=== PATIENT | male | born 1950 | race Caucasian/White ===

== ENCOUNTER 2017-01-22 20:23 | Inpatient (IN) ==
[~2017-01-22 20:23] MED LIST: *HR* Amiodarone 150 MG/3 ML VIAL IVPB ONE; *HR* Amiodarone Premix 360 MG/200 ML BAG IVC ONE
[2017-01-22] MEDS ORDERED: Ondansetron 4 MG/2 ML VIAL ONE (20:49)
[2017-01-22] MEDS ORDERED: Amiodarone 150 MG in D5% in Water 100 ML IVPB ONE (20:51)
[2017-01-22] MEDS ORDERED: 0.9 % Sodium Chloride 1,000 ML IVC ONE (20:53)
[2017-01-22] MEDS ORDERED: 0.9 % Sodium Chloride 1,000 ML ONE (20:54)
[2017-01-22 20:59] LABS: Basophils # 0.1 K/mcL (0.0-0.2); Basophils % 0.4 %; Eosinophils # 0.3 K/mcL (0.0-0.6); Eosinophils % 2.3 %; Hematocrit 48.9 % (37.5-50.1); Hemoglobin 16.5 g/dL (12.9-16.9); Immature Granulocytes % 0.9 % (0-4); Lymphocytes # 2.5 K/mcL (0.6-4.6); Lymphocytes % 17.9 %; Mean Corpuscular HGB Conc 33.7 g/dL (31.6-35.5); Mean Corpuscular Hemoglobin 30.1 pg (28.0-33.3); Mean Corpuscular Volume 89.1 fL (83.0-100.0); Mean Platelet Volume 10.5 fL (9.4-12.4); Monocytes # 1.6 K/mcL (0.0-1.3); Monocytes % 11.8 %; Neutrophils # 9.2 K/mcL (1.6-8.9); Platelet Count 220 K/mcL (140-400); Red Blood Count 5.49 M/mcL (4.19-5.50); Red Cell Distribution Width 13.5 % (11.5-14.5); Segmented Neutrophils % 66.7 %
[2017-01-22] MEDS ORDERED: Amiodarone Premix 150 MG/100 ML BAG IVPB ONE (21:00)
[2017-01-22] MEDS ORDERED: Aspirin 81 MG TAB.CHEW ONE (21:01)
[2017-01-22 21:04] LABS: INR 1.1
[2017-01-22 21:07] LABS: Activated Partial Thrombo Time 27.8 Seconds (26.0-36.0)
[2017-01-22 21:16] LABS: Calcium 9.9 mg/dL (8.6-10.8); Chloride 98 mEq/L (98-109); Potassium 3.9 mEq/L (3.5-4.5); Sodium 138 mEq/L (136-145); eGFR For African Americans > 60 (> 60); eGFR For Non-African Americans 54 (> 60)
--- NOTE | 2017-01-22 21:23 | Emergency Department Note ---
Disposition Clinical Impression: Ventricular tachycardia, Elevated troponin, Elevated serum creatinine Disposition: Admitted As Inpatient Condition: Fair SOB HPI - General Chief Complaint: ED Shortness of Breath/Dyspnea Stated Complaint: sob,high heart rate,cp Time Seen by Provider: 01/22/17 20:32 Source: patient Mode of arrival: private vehicle Limitations: no limitations Nursing Notes Reviewed: Yes Vital Signs Reviewed: Yes - History of Present Illness 66-year-old male history of A. fib, hypertension, diabetes who presents to the ER due to chest pain or shortness of breath. Patient states he started feeling unwell yesterday evening but did not want come to the hospital until encouraged by his today. He reports substernal pain as well as shortness of breath without cough or productive sputum. No recent illnesses. He was hospitalized months ago and reports a history of V. tach requiring cardioversion. He does have an AICD which they report has not defibrillated. No recent changes in his medications. He is not anticoagulated due to concern for falls. No other complaints. Pt Subjective Complaint: shortness of breath Onset (ago): day(s) Severity: severe Consistency/Duration: constant Improves with: nothing Worsens with: nothing Known history of: congestive heart failure Associated symptoms: Reports: chest pain, diaphoresis. Denies: fever, cough, nausea/vomiting Treatment prior to arrival: none Cough present: No Sputum production: No Sputum Amount: None - Related Data Home oxygen amount: none Home Medications Medication Instructions Recorded Confirmed Aclidinium [place] [Tudorza 1 puff IH BID #0 12/26/14 01/22/17 Pressair] Albuterol Sulfate [Albuterol 2 puff IH Q4HR PRN #0 12/26/14 01/22/17 Inhaler] Furosemide [Lasix] 60 mg PO DAILY #0 12/26/14 01/22/17 Nitroglycerin [Nitrostat] 0.4 mg SL Q5M PRN 03/07/15 01/22/17 TraMADol [Ultram] 100 mg PO TID PRN 03/07/15 01/22/17 Aspirin 81 mg PO DAILY 11/05/16 01/22/17 Atorvastatin Calcium [Lipitor] 20 mg PO HS 11/05/16 01/22/17 Clopidogrel [Plavix] 75 mg PO DAILY 11/05/16 01/22/17 Ipratropium/Albuterol Neb [Duoneb] 3 ml IH Q6HR PRN 11/05/16 01/22/17 Metformin HCl [Metformin HCl ER] 500 mg PO 3XW 11/05/16 01/22/17 Silodosin [Rapaflo] 8 mg PO MOWEFR 11/05/16 01/22/17 Sotalol [Betapace] 80 mg PO BID 11/05/16 01/22/17 Spironolactone [Aldactone] 25 mg PO DAILY 11/05/16 01/22/17 Acetylcysteine 10% 2 ml IH Q8H PRN 01/22/17 01/22/17 Albuterol Neb [AccuNeb] 1.25 mg IH Q8H PRN 01/22/17 01/22/17 Omeprazole [PriLOSEC] 40 mg PO BID 01/22/17 01/22/17 Oxycodone HCl/Acetaminophen 1 each PO Q6H PRN 01/22/17 01/22/17 [Percocet 5-325 mg Tablet] Oxygen 3 l NS AD 01/22/17 01/22/17 Previous Rx's Medication Instructions Recorded Budesonide/Formoterol 160/4.5 2 puff IH BIDR #1 inhaler 12/29/14 [Symbicort] Allergies Allergy/AdvReac Type Severity Reaction Status Date / Time rofecoxib [From Vioxx] Allergy Difficulty Verified 11/05/16 08:10 Breathing All systems ED: reviewed and negative except as stated. Constitutional: Denies: fever Cardiovascular: Reports: chest pain. Denies: palpitations Respiratory: Reports: dyspnea. Denies: cough Gastrointestinal: Denies: abdominal pain, nausea, vomiting Past Medical History - Past Medical History Attestation: Yes The following information was validated with the patient. Source: patient Medical history: Reports: atrial fibrillation, COPD, diabetes, hyperlipidemia, myocardial infarction, other Surgical history: Reports: herniorrhaphy, orthopedic, other, pacemaker/AICD, vascular surgery, other, AICD, pacemaker Psychiatric history: Reports: anxiety - Social History Smoking Status: Former smoker Smokeless Tobacco Status: No Alcohol use: Reports: none Drug use: Reports: none Physical Exam - General Limitations: no limitations General appearance: alert, in no apparent distress - Head Head exam: atraumatic, normocephalic - Eye Eye exam: Present: normal appearance - ENT ENT exam: normal exam - Neck Neck exam: Present: normal inspection, full ROM - Chest Chest inspection: Present: normal inspection - Respiratory Respiratory exam: Present: normal lung sounds bilaterally - Cardiovascular Cardiovascular exam: Present: normal rhythm, tachycardia, normal heart sounds - Abdominal Exam Abdominal exam: Present: soft, Non-Tender. Absent: tenderness - Extremities Exam Extremities exam: Present: normal inspection, full ROM - Expanded Upper Extremity Exam Shoulder exam: Present: normal inspection, full ROM Arm exam: Present: normal inspection, full ROM Elbow exam: Present: normal inspection, full ROM Forearm/Wrist exam: Present: normal inspection, full ROM Hand exam: Present: normal inspection, full ROM Vascular exam: Normal: radial pulse - Expanded Lower Extremity Exam Hip/Pelvis exam: Present: normal inspection, full ROM Upper leg exam: Present: normal inspection, full ROM Knee exam: Present: normal inspection, full ROM Lower leg exam: Present: normal inspection, full ROM Ankle exam: Present: normal inspection, full ROM Foot/toe exam: Present: normal inspection, full ROM Neurovascular/Tendon exam: Absent: motor deficit, sensory deficit - Neurological Exam Neurological exam: Present: alert - Psychiatric Psychiatric exam: Present: normal affect - Skin Skin exam: Present: warm, dry, intact Course Course Narrative: Patient seen and examined. He is tachycardic with what appears to be a wide complex on his EKG concerning for V. tach. His blood pressure is currently stable at 110 systolic. We will obtain a chest x-ray as well as labs. We also did initiate amiodarone and we will talk with the labor contractor for EKG interpretation. - Reevaluation(s) Reevaluation #1: Amiodarone drip started. His rate has slightly decreased to roughly 155. I discussed with the on-call labor contractor who believes that it is V. tach and agrees with amiodarone as well as heparinizing the patient. Reevaluation #2: Patient noted to be slightly more hypotensive here around 95 systolic. We did obtain a manual blood pressure which showed the same reading. 1 L of fluid ordered. Mentating appropriate at this time. Reevaluation #3: Interventionalists paged Time: 21:21 Additional Reevaluation(s): After recommendations by interventional cardiology for cardioversion the patient was given 10 mg of etomidate and cardioverted with 200 J synchronized. Repeat EKG demonstrates sinus rhythm. Patient tolerated procedure well. - Consultations Consultation #1: I spoke with the on-call labor contractor Dr. Howell. I discussed the patient's history EKG is interventions and hemodynamics to date. Requested to send EKGs for his interpretation. We will send and await evaluation. Consultation #2: I spoke again with Dr. Howell. He believes that this does appear to be ventricular tachycardia and agrees with amiodarone as well as starting a heparin drip and discussing with interventional cardiology. Time: 21:20 Consultation #3: I spoke with the on-call interventional with Dr. Ventura. I sent the EKGs for interpretation. He recommends to cardiovert the patient and to continue amiodarone. Vital Signs Temperature 97.4 F L 01/22/17 20:25 Pulse Rate 163 01/22/17 20:25 Respiratory Rate 22 01/22/17 20:25 Blood Pressure 106/78 01/22/17 20:25 O2 Sat by Pulse Oximetry 98 01/22/17 20:25 Temperature 97.8 F 01/24/17 10:57 Pulse Rate 72 01/24/17 12:30 Respiratory Rate 16 01/24/17 10:57 Blood Pressure 116/66 01/24/17 10:57 O2 Sat by Pulse Oximetry 94 01/24/17 10:57 Oxygen Delivery Oxygen Delivery Nasal Cannula Procedures - Procedural Sedation Indication: other (Cardioversion) If known; time of last PO intake: 18:00 H&P (including ROS) documented in medical record: Yes Previous reaction to sedatives/anesthetics: No Dentition: poor dentition (Upper denture), dentures removed Airway Assessment: Patient can open mouth completely, TMJ function normal Possible difficult airway: Yes Difficult Airway; If yes,: Enlarged neck circumference, short neck ASA Classification: CLASS II-Mild systemic disease Plan of Care: Pt appropriate candidate for procedure/moderate/conscious sedation , Risks/benefits of procedure/sedation discussed w/ patient/family, If not NPO; Risk of intake outweiged by necessity to perform procedure Preparation: environmental monitoring specialist applied, pulse oximeter, supplemental O2 applied, suction/airway equipment at bedside, IV secured IV Etomidate Dose (mgs): 10 Patient Tolerated Procedure: well Complications: none Shortness of Breath/Dyspnea - MDM Narrative Medical decision making narrative: -year-old male presents to the ER due to chest pain and shortness of breath. Found to be in ventricular tachycardia here. EKGs were reviewed with cardiology as well as interventional cardiology. The patient was placed on amiodarone as well as an amiodarone infusion. After discussion with interventional cardiology they recommended to cardiovert the patient. We will utilize procedural sedation with etomidate and synchronized cardioversion with 200 J with conversion to sinus rhythm. Patient currently on amiodarone as well as heparin at the recommendation of cardiology. Labs reviewed showing an elevated troponin of 0.04. He will be admitted to the hospitalist service with cardiology consultation. - Medical Records Medical records reviewed: Yes I reviewed the patient's medical records. - Lab Data Lab results reviewed: Yes I reviewed the patient's lab results. Result diagrams: 01/24/17 04:40 01/24/17 04:40 Lab Results 01/22/17 01/22/17 01/22/17 Range/Units 20:45 20:45 20:45 WBC 13.8 H (4.3-11.1) K/mcL RBC 5.49 (4.19-5.50) M/mcL Hgb 16.5 (12.9-16.9) g/dL Hct 48.9 (37.5-50.1) % MCV 89.1 (83.0-100.0) fL MCH 30.1 (28.0-33.3) pg MCHC 33.7 (31.6-35.5) g/dL RDW 13.5 (11.5-14.5) % Plt Count 220 (140-400) K/mcL MPV 10.5 (9.4-12.4) fL Immature Gran % 0.9 (0-4) % Seg Neutrophils % 66.7 % Lymphocytes % 17.9 % Monocytes % 11.8 % Eosinophils % 2.3 % Basophils % 0.4 % Neutrophils # 9.2 H (1.6-8.9) K/mcL Lymphocytes # 2.5 (0.6-4.6) K/mcL Monocytes # 1.6 H (0.0-1.3) K/mcL Eosinophils # 0.3 (0.0-0.6) K/mcL Basophils # 0.1 (0.0-0.2) K/mcL PT 12.0 (9.4-12.1) Seconds INR 1.1 APTT 27.8 (26.0-36.0) Seconds Sodium 138 (136-145) mEq/L Potassium 3.9 (3.5-4.5) mEq/L Chloride 98 (98-109) mEq/L Carbon Dioxide 26 (19-29) mEq/L BUN 28 H (8-26) mg/dL Creatinine 1.32 H (0.72-1.25) mg/dL Est GFR ( Amer) > 60 (> 60) Est GFR (Non-Af Amer) 54 L (> 60) BUN/Creatinine Ratio 21 (6-26) Glucose 174 H (70-99) mg/dL Calculated Osmolality 296 (280-300) Calcium 9.9 (8.6-10.8) mg/dL Magnesium 2.1 (1.6-2.6) mg/dL Troponin I (0-0.03) ng/mL B-Natriuretic Peptide (0-100) pg/mL TSH 1.939 (0.350-4.840) mcIU/mL 01/22/17 01/22/17 Range/Units 20:45 20:45 WBC (4.3-11.1) K/mcL RBC (4.19-5.50) M/mcL Hgb (12.9-16.9) g/dL Hct (37.5-50.1) % MCV (83.0-100.0) fL MCH (28.0-33.3) pg MCHC (31.6-35.5) g/dL RDW (11.5-14.5) % Plt Count (140-400) K/mcL MPV (9.4-12.4) fL Immature Gran % (0-4) % Seg Neutrophils % % Lymphocytes % % Monocytes % % Eosinophils % % Basophils % % Neutrophils # (1.6-8.9) K/mcL Lymphocytes # (0.6-4.6) K/mcL Monocytes # (0.0-1.3) K/mcL Eosinophils # (0.0-0.6) K/mcL Basophils # (0.0-0.2) K/mcL PT (9.4-12.1) Seconds INR APTT (26.0-36.0) Seconds Sodium (136-145) mEq/L Potassium (3.5-4.5) mEq/L Chloride (98-109) mEq/L Carbon Dioxide (19-29) mEq/L BUN (8-26) mg/dL Creatinine (0.72-1.25) mg/dL Est GFR ( Amer) (> 60) Est GFR (Non-Af Amer) (> 60) BUN/Creatinine Ratio (6-26) Glucose (70-99) mg/dL Calculated Osmolality (280-300) Calcium (8.6-10.8) mg/dL Magnesium (1.6-2.6) mg/dL Troponin I 0.04 H* (0-0.03) ng/mL B-Natriuretic Peptide 1417 H (0-100) pg/mL TSH (0.350-4.840) mcIU/mL - Radiology Data Radiology results reviewed: Yes I reviewed the patient's radiology results. Chest X-Ray 01/22/17 20:51 IMPRESSION: 1. No definite acute infiltrate. 2. Spiculated opacity within the right lung apex, decreased in size when compared to the previous exam, with associated pleural thickening, presumably representing neoplasm and scarring. D/ / Ulises Aguilar MD / Ulises Aguilar MD Interpreting Provider: Ulises Aguilar MD - EKG Data EKG attestation: Yes I reviewed and interpreted this EKG. EKG results narrative: EKG demonstrates ventricular tachycardia with a rate of 164. Right axis deviation. Prolonged QRS duration of 182. QTC [address] elevations. Changes from prior EKG included V. tach. Repeat EKG after cardioversion demonstrates sinus rhythm with rate of 73 bpm. Normal axis. Prolonged WI interval of 202. Otherwise normal intervals. Q waves in the inferior leads. No gross ST elevations or depressions. No acute ischemic findings. S.B.A.R. - S.B.A.R. Situation: Demographics, MOA Background: Presenting Complaint, Relevant PMH, Meds, & Allergies Assessment: Vital Signs, Course and respsone to treatment, Exam Concerns, Patient/Family Expectation, Pertinant Lab Results Recommendation: Barrier(s) to disposition, Recommendation based on pending studies, treatments, or consults S.Lexi Report Given to: Dr. Aylin Coleman Repor Time: 22:20 (Request 20 mEq of oral potassium as well as to check a magnesium level.) Attestation Statement - Attestation Attestation: I examined this patient and my medical decision-making was reviewed with the Resident Physician, Dr. Metcalf. I agree with the documented findings, disposition and treatment plan as described except to the extent set forth below. Pt is a 66 yo wm, with hx CAd, a fib, DM, HTN who presents to the ER with c/o substernal nonrad CP/press, and SOB. Sxs began almost 30 hours ago, but pt didn' t want to come to the ER. reports pt hospitalized recently for v tach which required cardioversion. Pt not on anticoagulants due to concersn with being a fall risk. Pt has been compliant with his meds. I agree with PE findings as documented. EKG shows v tach, HR 160's with stable BP on arrival. Pt on CM/pulse ox, PIV x 2 established, and pt given ASA and IV amiodarone for rate control with wide complex tachycardia. Labs drawna dn sent. CXR obtained, no acute abn. Contacted Dr. Howell, who agrees with current mgmt, and recommends heparin IV and if BP becomes unstable, cardiovert. Also recommended speaking with interventionalist. Also d/w interventionalist on-call. Pt became hypotensive and now diaphoretic, SOB and CP. IVF initiated and set up for cardioversion. Explained indications for electrical cardioversion and pt and consent to procedure. Resp/pharmacy called to bedside. Pt sedated with etomidate and synchronized CV at 200 J, with return to NSR, narrow QRS with stable BP. Pt tolerated quite well, and VSS, sxs improved. Labs with elev trop. EKG repeated. D/W hospitalist who accepted pt for admission , Cardio consulted from ED. Pt improved.
[2017-01-22] MEDS ORDERED: *HR* Etomidate 20 MG/10 ML AMPUL IVP ONE (21:33)
[2017-01-22 21:37] LABS: Thyroid Stimulating Hormone 1.939 mcIU/mL (0.350-4.840)
[2017-01-22] MEDS ORDERED: *HR* Heparin 5,000 UNIT/ML VIAL IVP PRN ×2 (21:44)
[2017-01-22] MEDS ORDERED: *HR* Heparin 5,000 UNIT/ML VIAL IVP ONE (21:44)
[2017-01-22] MEDS ORDERED: Amiodarone Premix 360 MG/200 ML BAG IVC ONE (21:45)
[2017-01-22] MEDS: Heparin 25,000 UNIT/500 ML D5W 25,000 UNIT/500 ML MLS IVC SCH (21:58)
[2017-01-22 22:32] LABS: BUN/Creatinine Ratio 21 (6-26); Blood Urea Nitrogen 28 mg/dL (8-26); Carbon Dioxide 26 mEq/L (19-29); Glucose 174 mg/dL (70-99); Osmolality,Calculated 296 (280-300)
[2017-01-22 23:00] LABS: Magnesium 2.1 mg/dL (1.6-2.6)
--- NOTE | 2017-01-22 23:40 | Internal Med History&Physical ---
Date of Encounter: 01/22/17 Time of Encounter: 23:40 Assessment and Plan (1) Ventricular tachycardia Current visit: Yes Status: Acute Unclear etiology, possibly secondary to CHF likely acute systolic Continue amiodarone drip, heparin drip Radiology consult Start Lasix IV, strict I's and O's and daily weight Telemetry Continue sotalol for now Consider starting on antibiotics even infectious focus is suspected as a trigger of his tachycardia, check UA Omeprazole for GI prophylaxis and heparin drip for DVT prophylaxis. The patient will be admitted as inpatient, expected to stay more than 2 midnights. Full code. Time spent on this admission 40 minutes High risk due to V. tach (2) Elevated serum creatinine Current visit: Yes Status: Acute Acute renal failure possibly related to CHF Continue Lasix for now (3) Elevated troponin Current visit: Yes Status: Acute Possibly related to V. tach versus acute coronary syndrome May monitor troponins (4) MANUEL on CPAP Current visit: No Status: Acute (5) History of COPD Current visit: No Status: Chronic No exacerbation (6) History of coronary artery disease Current visit: No Status: Chronic Continue aspirin, Plavix (7) BPH (benign prostatic hypertrophy) with urinary obstruction Current visit: No Status: Resolved (8) Diabetes mellitus Current visit: No Status: Acute Insulin sliding scale Hold metformin due to renal failure Qualifiers: Diabetes mellitus type: type 2 Diabetes mellitus complication status: without complication Diabetes mellitus long term care social worker insulin use: without care home use Qualified Code(s): E11.9 - Type 2 diabetes mellitus without complications Internal Medicine - H&P: HPI Chief complaint: Shortness of breath Admitted From: Emergency Dept History of present illness: Mr. Apodaca is a 66 year old male with a past medical history of CHF possibly systolic status post AICD placement, A. fib not on anticoagulation currently on sotalol, diabetes type 2 not insulin-dependent, came to emergency room complaining of 2 weeks of shortness of breath worsened the past 24 hours, he has a dry cough, denies any fevers or sick contacts. Says that he has been using his metolazone and Lasix but his heart rate has been extremely elevated up to the 160s even for 24 hours. BNP is 1417 white blood cell count is 13.8, creatinine has increased from 0.99 up to 1.3, chest x-ray shows a spiculated opacity in the right upper lung has decreased in size, troponin 0.04, the patient developed V. tach for which cardiology was consulted by the ER and recommended to cardiovert with 200 J and to start an amiodarone drip. Patient is more stable at the moment does not complain of any other symptom. Past Med Surg Social Fam HX - Past Medical History Medical history: atrial fibrillation (Not on anticoagulation currently on sotalol), COPD (Oxygen dependent using 2 L at home), diabetes (Not insulin- dependent), hyperlipidemia, myocardial infarction, other (BPH, chronically elevated troponins, CAD, cardioversion in the past,) Psychiatric history: anxiety - Past Surgical History Surgical History: herniorrhaphy, orthopedic, other (Shoulder arthroscopy), pacemaker/AICD, vascular surgery, other (Cardiac ablation), AICD, pacemaker - Social History Smoking Status: Former smoker Packs per day: Quit 5 years ago Smokeless Tobacco Status: No Alcohol use: none Drug use: none - Family History Father Living Status: Mother Living Status: Brother Living Status: Still Living Hx Family Cardiac Disorders: Yes (Hypertension) Hx Family Endocrine Disorder: Yes (Diabetes) Sister Living Status: Still Living Hx Family Endocrine Disorder: Yes (Diabetes) - Additional Family History Additional family history: Brother with lung cancer and mother with dementia Internal Medicine - H&P: Meds Aclidinium [place] [Tudorza [place]air] 1 puff IH BID #0 12/26/14 [History] Albuterol Sulfate [Albuterol Inhaler] 2 puff IH Q4HR PRN #0 12/26/14 [History] Furosemide [Lasix] 60 mg PO DAILY #0 12/26/14 [History] Budesonide/Formoterol 160/4.5 [Symbicort] 2 puff IH BIDR #1 inhaler 12/29/14 [Rx ] Nitroglycerin [Nitrostat] 0.4 mg SL Q5M PRN 03/07/15 [History] TraMADol [Ultram] 100 mg PO TID PRN 03/07/15 [History] Aspirin 81 mg PO DAILY 11/05/16 [History] Atorvastatin Calcium [Lipitor] 20 mg PO HS 11/05/16 [History] Clopidogrel [Plavix] 75 mg PO DAILY 11/05/16 [History] Ipratropium/Albuterol Neb [Duoneb] 3 ml IH Q6HR PRN 11/05/16 [History] Metformin HCl [Metformin HCl ER] 500 mg PO 3XW 11/05/16 [History] Silodosin [Rapaflo] 8 mg PO MOWEFR 11/05/16 [History] Sotalol [Betapace] 80 mg PO BID 11/05/16 [History] Spironolactone [Aldactone] 25 mg PO DAILY 11/05/16 [History] Acetylcysteine 10% 2 ml IH Q8H PRN 01/22/17 [History] Albuterol Neb [AccuNeb] 1.25 mg IH Q8H PRN 01/22/17 [History] Omeprazole [PriLOSEC] 40 mg PO BID 01/22/17 [History] Oxycodone HCl/Acetaminophen [Percocet 5-325 mg Tablet] 1 each PO Q6H PRN [History] Oxygen 3 l NS AD 01/22/17 [History] 3 Allergy/AdvReac Type Severity Reaction Status Date / Time rofecoxib [From Vioxx] Allergy Difficulty Verified 11/05/16 08:10 Breathing All Systems PM: A 10-system review of systems was performed and is negative for pertinent findings except as documented above in the HPI. Review of systems: Feels short of breath, has not been able to lay flat due to shortness of breath , denies any headaches, other systems out of the 10 reviewed were negative. - Constitutional Vitals: Temp Pulse Resp BP Pulse Ox 97.4 F L 85 18 109/75 100 01/22/17 20:25 01/22/17 23:27 01/22/17 23:27 01/22/17 23:27 01/22/17 23:27 General appearance: Present: A&O X 3, morbidly obese - Head Head exam: Present: atraumatic, normocephalic - Eye Eye exam: Present: PERRL, conjuntiva pink, sclera anicteric Pupils: Present: PERRL - Neck Neck exam general surgery: Present: supple, trachea midline. Absent: lymphadenopathy - Respiratory Respiratory exam: Present: decreased breath sounds, CTAB. Absent: accessory muscle use, rales, rhonchi, wheezes - Cardiovascular Cardiovascular exam: Present: RRR, +S1, +S2, tachycardia. Absent: diastolic murmur, gallop, rubs, systolic murmur - GI/Abdominal GI/Abdominal exam: Present: normal bowel sounds, soft, no peritoneal signs. Absent: distended, tenderness - Extremities Exam Extremities exam: Present: pedal edema (+2 pitting edema in both lower extremities), warm, radial pulses palpable and symmetrical. Absent: calf tenderness, cyanotic - Neurological Exam Neurological exam: Present: CN II-XII intact, oriented X3, no focal deficits. Absent: pronater drift, facial droop, speech deficit - Skin Skin exam: Present: dry, intact Internal Med - H&P Results - Labs CBC & Chem 7: 01/22/17 20:45 01/22/17 20:45
[2017-01-22] MEDS ORDERED: Ipratropium/Albuterol Neb 3 ML IH PRN (23:59)
[2017-01-22] MEDS ORDERED: Nitroglycerin 0.4 MG TAB.SUBL SL PRN (23:59)
[2017-01-23] MEDS ORDERED: Naloxone 0.4 MG/ML INJ IVP PRN (00:02)
[2017-01-23] MEDS ORDERED: Acetaminophen 325 MG TABLET PO PRN (00:02)
[2017-01-23] MEDS ORDERED: *HR* Morphine 2 MG/ML SYRINGE IVP PRN (00:02)
[2017-01-23] MEDS ORDERED: Dextrose Gel 15 GM PO PRN ×2 (00:16)
[2017-01-23] MEDS ORDERED: *HR* Dextrose 50 % in Water (Syg) 50 ML SYRINGE IVP PRN (00:16)
[2017-01-23] MEDS ORDERED: D5% in Water 1,000 ML IVC PRN (00:16)
[2017-01-23] MEDS: Furosemide 40 MG/4 ML VIAL IVP SCH ×3 (00:28→16:59)
[2017-01-23] MEDS: *HR* OxyCODONE/APAP 5/325 TABLET PO PRN ×2 (00:37→08:55)
[2017-01-23] MEDS: Insulin LISPRO 300 UNITS/3 ML VIAL SQ SCH ×5 (00:42→20:46)
[2017-01-23] MEDS: traMADol 50 MG TABLET PO PRN ×2 (02:47→10:39)
[2017-01-23] MEDS: Amiodarone Premix 360 MG/200 ML BAG IVC SCH ×2 (03:45→15:45)
[2017-01-23 04:45] LABS: BUN/Creatinine Ratio 21 (6-26); Blood Urea Nitrogen 26 mg/dL (8-26); Calcium 8.5 mg/dL (8.6-10.8); Carbon Dioxide 26 mEq/L (19-29); Chloride 100 mEq/L (98-109); Glucose 181 mg/dL (70-99); Magnesium 1.7 mg/dL (1.6-2.6); Osmolality,Calculated 295 (280-300); Potassium 3.5 mEq/L (3.5-4.5); Sodium 138 mEq/L (136-145); eGFR For African Americans > 60 (> 60); eGFR For Non-African Americans 59 (> 60)
[2017-01-23] MEDS ORDERED: 0.9 % Sodium Chloride 500 ML ONE (06:04)
[2017-01-23] MEDS: Budesonide/Formoterol 160/4.5 MDI IH SCH ×2 (08:11→20:21)
[2017-01-23] MEDS: Spironolactone 25 MG TABLET PO SCH (08:37)
[2017-01-23] MEDS: Aspirin 81 MG TAB.CHEW PO SCH (08:37)
--- NOTE | 2017-01-23 09:23 | Internal Med Progress Note ---
<Regino Velasco - Last Filed: 01/23/17 12:55> Date of Encounter: 01/23/17 Time of Encounter: 09:23 - Assessment and plan (1) Ventricular tachycardia Current Visit: No Status: Acute Assessment and plan: Started on amiodarone/heparin in ER; interventionalist cardioversion yesterday Continued on amiodarone Pt endorses AICD did not respond to sustained ventricular tachycardia Cardiology consulted (2) History of coronary artery disease Current Visit: No Status: Chronic Assessment and plan: [place]: 1998; AICD with Dr. Hood in [facility] Continue aspirin, plavix, lipitor; systolic dysfunction HF with bnp elevation, unknown onset (3) Elevated troponin Current Visit: No Status: Acute Assessment and plan: 0.04; elevate likely 2/2 heart failure, unlikely ACS (4) Diabetes mellitus Current Visit: No Status: Acute Assessment and plan: Pt on SSI; diabetic diet (currently npo for cath) will monitor Qualifiers: Diabetes mellitus type: type 2 Diabetes mellitus complication status: without complication Diabetes mellitus long winder tender insulin use: without long winder tender use Qualified Code(s): E11.9 - Type 2 diabetes mellitus without complications (5) MANUEL on CPAP Current Visit: No Status: Acute Assessment and plan: Tolerating CPAP Monitoring (6) History of COPD Current Visit: No Status: Chronic Assessment and plan: 40 year hx 2 ppd; quit 5 years ago On 2-3L home O2 (7) Obesity (BMI 30-39.9) Current Visit: No Status: Acute - Subjective Interval history: Mr. Apodaca, 66m, past medical history of a-fib, htn, dm2, [place]-1998 with aicd placement, presented to ER yesterday with tachycardia and shortness of breath, EKG showed wide qrs v-tac, admitted for ventricular tachycardia, placed on amiodarone/heparin drip, was dc cardioversion yesterday, is now in sinus rhythm , continuing amiodarone drip. Pt reports no defibrillation of aicd since onset of symptoms. Sees EP cardiology for aicd interrogation every [address] Hood in [place] near [place]. ROS: endorses rhinorrhea, difficulty ambulating (consistent with baseline, fall- risk) denies chest pain, shortness of breath currently, is comfortable, no fever. Social: 5 years quit; 40 year history on 2 packs; on 2L-3L O2 at home. - Constitutional Vitals: Temp Pulse Resp BP Pulse Ox 97.5 F L 60 16 108/77 96 01/23/17 07:59 01/23/17 08:08 01/23/17 08:11 01/23/17 07:59 01/23/17 08:11 General appearance: Present: A&O X 3, morbidly obese - Head Head exam: Present: atraumatic - Neck Neck exam general surgery: Present: full ROM - Respiratory Respiratory exam: Present: CTAB. Absent: respiratory distress, rhonchi Additional comments: on 2L nasal canula - Cardiovascular Cardiovascular exam: Present: +S1, +S2. Absent: systolic murmur Additional comments: currently sinus rhythm - GI/Abdominal GI/Abdominal exam: Present: no peritoneal signs. Absent: tenderness - Extremities Exam Extremities exam: Present: normal capillary refill, pedal edema Additional comments: +1 pitting edema Internal Medicine: Result - Labs CBC & Chem 7: 01/22/17 20:45 01/23/17 04:02 Labs: BMP 01/23/17 04:02 Sodium 138 Potassium 3.5 Chloride 100 Carbon Dioxide 26 BUN 26 Creatinine 1.22 Glucose 181 H Calcium 8.5 L - ABG Interpretation ABG results: PT/INR, D-dimer PT 12.0 Seconds (9.4-12.1) 01/22/17 20:45 Consult Discharge Plan - Plan Referrals: Dylon Kang MD [Partnered Physician] - 01/30/17 3:00 pm () Vern Pace, ELECTRICIAN SUPERVISOR [Advanced Practice Nurse] - (THE OFFICE WILL CALL PATIENT AT HOME WITH FOLLOW UP APPOINTMENT) <Flex Porter - Last Filed: 01/23/17 17:00> Date of Encounter: 01/23/17 - Constitutional Vitals: Temp Pulse Resp BP Pulse Ox 97.6 F 67 16 104/78 97 01/23/17 16:46 01/23/17 16:00 01/23/17 16:45 01/23/17 16:45 01/23/17 16:45 Internal Medicine: Result - Labs CBC & Chem 7: 01/22/17 20:45 01/23/17 04:02 Labs: BMP 01/23/17 04:02 Sodium 138 Potassium 3.5 Chloride 100 Carbon Dioxide 26 BUN 26 Creatinine 1.22 Glucose 181 H Calcium 8.5 L Cardiac Enzymes 01/23/17 01/23/17 Range/Units 10:07 15:59 Troponin I 0.03 0.02 (0-0.03) ng/mL - ABG Interpretation ABG results: PT/INR, D-dimer PT 12.0 Seconds (9.4-12.1) 01/22/17 20:45 - Impressions Impressions Echocardiogram 01/23/17 00:04 Impressions: Technically challenging study with suboptimal windows even with use of Definity. overall, LV systolic function appears normal estimated EF 55-60%. Unable to evaluate LV segmental wall motion. RV size and function appear normal. No significant valvular dysfunction. No pulmonary hypertension. Left Ventricular Wall Motion: Rest Echo Findings The apical inferior, mid inferior, basal inferior, mid anterior septal, mid inferior lateral, basal anterior septal and basal inferior lateral loco were not visualized. All other wall segments showed normal motion. Findings: Study Quality * Technically challenging due to body habitus. ECG Findings * Normal sinus rhythm. Right Ventricle * Normal RV size with probably normal function. Left Atrium * Normal left atrial size. Right Atrium * Normal right atrial size. Aortic Valve * No aortic regurgitation. * Aortic valve not well visualized. * No aortic stenosis. Mitral Valve * No mitral regurgitation. * Mitral valve not well visualized. * No mitral stenosis. Tricuspid Valve * Tricuspid valve not well visualized. * Trace tricuspid regurgitation. * Estimated RA pressure is 3 mmHg. * Estimated RVSP is 30 mmHg. * No pulmonary hypertension. Pulmonic Valve * Pulmonic valve is not well visualized. * No pulmonic stenosis. * No pulmonic regurgitation. Pulmonary Artery * Pulmonary artery not well visualized. Aorta * Not well visualized. Pericardium * There is no pericardial effusion present. Left Ventricle * Normal LV size and wall thickness. * Moderate left ventricular diastolic dysfunction. * Definity echo contrast was used. Images were suboptimal. * LVEF 55-60%. Device lead * A device lead was visualized in the right atrium and right ventricle. Interatrial Septum * No evidence of PFO by color Doppler. IVC * Normal IVC dimensions and inspiratory collapse. - Attending Attestation I examined this patient and my medical decision-making was reviewed with the Resident Physician. I agree with the documented findings, disposition and treatment plan as described except to the extent set forth below. This is a 66 y/o M with known CAD s/p stents, HTN, HLD, Morbid obese pt, systolic CHF, Ischemic cardiomyopathy with s/p AICD was presented to ER with plpiataiuonts. He happened to be in Vtach, so he had cardioversion done in ER x 1 and started him on Amiodarone and heparin gtt. Now pt is alert, awake and O x3. Denied any CP / SOB. No palpitations Chest: Diminished BS b/l no crackles, no rales Heart : S1 S2 + RRR No murmurs a/p 1. Acute V tach mostly triggered by CHF exacerbation scheduled for cardiac cath today mean while cont Amiodarone gtt 2. Acute CHF exacerbation.. seems to be systolic, however pt stated his recent echo showed LVEF 50% will f/u on 2 D Echo cont Lasix IV cont ASA, Plavix, Statin, Aldactone 3. Paroxymal Afib rate controlled on Sotalol cont heparin gtt for anticoag will check with cardiology about anti coag options
[2017-01-23] MEDS ORDERED: Perflutren Lipid Microsphere 1.3 ML in 0.9 % Sodium Chloride 8.7 ML IVP ONE (09:55)
[2017-01-23] MEDS: Cetirizine HCl 5 MG/5 ML UDC PO SCH (10:33)
--- NOTE | 2017-01-23 10:35 | Cardiology Consult Note ---
Date of Encounter: 01/23/17 Time of Encounter: 10:10 Assessment and Plan (1) Ventricular tachycardia Current Visit: No Status: Acute CP and SOB founds to be in Vtach. Patient started on an amiodarone drip and cardoverted back to normal sinus rhythm. Plan: - LHC today showed total occlusion of RCA with collateral circulation - Medtronic device interrogation - Echo showed EF 55-60%, LV systolic function normal, unable to evaluate LV segmental wall motion, RV size and function normal, valvular function normal - obtain records from Dr. Betts at [facility] - continue sotolol 80mg BID and amiodarone drip - begin Amiodarone 400mg BID oral after amiodarone 24hr protocol - continue plavix, asa, atorvastatin, lasix (2) Chronic a-fib Current Visit: Yes Status: Acute Hx of PAF, s/p ablation in 1998 and was on Eliquis. [id number] score of 3 for CAD, age, and PVD but due to cobos's esophagus his supervisor plate forming have recommended no anticoagulation therapy. Per cardiology note from Elif Pino CNP at [facility] 07/15/16. (3) CAD (coronary artery disease) Current Visit: Yes Status: Acute LHC today. Total RCA occluded with collaterals. Continue medical management. Qualifiers: Coronary Disease-Associated Artery/Lesion type: [place] artery [place] vs. transplanted heart: [place] heart Associated angina: with unspecified angina Qualified Code(s): I25.119 - Atherosclerotic heart disease of [place] coronary artery with unspecified angina pectoris (4) ICD (implantable cardioverter-defibrillator), dual, in situ Current Visit: Yes Status: Acute Device interrogation showed: "lead trends within expected range. Sensing threshold measurements and lead impedances within expected range, no atrial/rv auto capture threshold measurements available. The device recorded 8 monitored VT episodes, longest lasted 22 hrs, last recored on Jan 21 2017, suspected retrograde conduction, A rate/vrates 150s-160s bpm, VT detection programed rate - 176 bpm, 1 Vt- Ns episode on 12 jan 2017." Discussion w patient/family: The assessment and plan as outlined above was discussed with the patient and/or family members who expressed understanding and agreement. All questions were answered. Thank you for involving us in the care of your patient. Please call with any questions. History of Present Illness Consult date: 01/22/17 Requesting physician: Gera Metcalf Consult reason: Vtach Chief complaint: CP, SOB, and dizzness History of present illness: Mr. Apodaca is a 66 year old male with a pmh of afib on plavix and asa, HTN, DM2, dual chamber Medtronic ICD with unknown last interrogation , [place] in 1998 without stent placement, fem-fem bipass, and recent hospitalization 1 mo ago for Vtach requiring cardioversion presented to the ED with CP, SOB, and dizzness and found to be in Vtach. Patient states that his chest pain began Friday evening ( 01/21). Denies chest pain with exertion, N/V. Former smoker. His repair manager is Dr. Betts at [facility] but he would like to transfer to [place]. Last heart cath in 2012 with total occlusion of the right coronary artery and no critical disease in the left coronary artery. In the ED patient was placed on an Amiodarone and Heparin drip and was cardioverted with 200J. Patient is currently rate controlled and is feeling better other than some dizziness. Past Med Surg Social Fam HX - Past Medical History Medical history: atrial fibrillation (Not on anticoagulation currently on sotalol), COPD (Oxygen dependent using 2 L at home), diabetes (Not insulin- dependent), hyperlipidemia, myocardial infarction, other (BPH, chronically elevated troponins, CAD, cardioversion in the past,) Psychiatric history: anxiety - Past Surgical History Surgical History: herniorrhaphy, orthopedic, other (Shoulder arthroscopy), pacemaker/AICD, vascular surgery, other (Cardiac ablation), AICD, pacemaker - Social History Smoking Status: Former smoker Packs per day: Quit 5 years ago Smokeless Tobacco Status: No Alcohol use: none Drug use: none - Family History Father Living Status: Mother Living Status: Hx Family Endocrine Disorder: Yes (Diabetes) Brother Living Status: Still Living Hx Family Cardiac Disorders: Yes (Hypertension) Hx Family Endocrine Disorder: Yes (Diabetes) Sister Living Status: Still Living Hx Family Endocrine Disorder: Yes (Diabetes) Medications and Allergies Aclidinium [place] [Tudorza Pressair] 1 puff IH BID #0 12/26/14 [History] Albuterol Sulfate [Albuterol Inhaler] 2 puff IH Q4HR PRN #0 12/26/14 [History] Furosemide [Lasix] 60 mg PO DAILY #0 12/26/14 [History] Budesonide/Formoterol 160/4.5 [Symbicort] 2 puff IH BIDR #1 inhaler 12/29/14 [Rx ] Nitroglycerin [Nitrostat] 0.4 mg SL Q5M PRN 03/07/15 [History] TraMADol [Ultram] 100 mg PO TID PRN 03/07/15 [History] Aspirin 81 mg PO DAILY 11/05/16 [History] Atorvastatin Calcium [Lipitor] 20 mg PO HS 11/05/16 [History] Clopidogrel [Plavix] 75 mg PO DAILY 11/05/16 [History] Ipratropium/Albuterol Neb [Duoneb] 3 ml IH Q6HR PRN 11/05/16 [History] Metformin HCl [Metformin HCl ER] 500 mg PO 3XW 11/05/16 [History] Silodosin [Rapaflo] 8 mg PO MOWEFR 11/05/16 [History] Sotalol [Betapace] 80 mg PO BID 11/05/16 [History] Spironolactone [Aldactone] 25 mg PO DAILY 11/05/16 [History] Acetylcysteine 10% 2 ml IH Q8H PRN 01/22/17 [History] Albuterol Neb [AccuNeb] 1.25 mg IH Q8H PRN 01/22/17 [History] Omeprazole [PriLOSEC] 40 mg PO BID 01/22/17 [History] Oxycodone HCl/Acetaminophen [Percocet 5-325 mg Tablet] 1 each PO Q6H PRN [History] Oxygen 3 l NS AD 01/22/17 [History] 3 Allergy/AdvReac Type Severity Reaction Status Date / Time rofecoxib [From Vioxx] Allergy Difficulty Verified 11/05/16 08:10 Breathing All Systems Review: A 10-system review of systems was performed and is negative for pertinent findings except as documented above in the HPI. Physical Examination Vital Signs, Last 4 Hours Temp Pulse Resp BP Pulse Ox 01/23/17 09:00 96 129/79 01/23/17 08:11 16 96 01/23/17 08:08 60 01/23/17 08:00 66 129/110 01/23/17 07:59 97.5 F L 62 12 108/77 100 General: Conversant, No Apparent Distress HEENT: Atraumatic, Normocephaly, Mucus Membranes Moist Neck: Normal carotid pulses Cardiac: Reg Rate and Rhythm, Normal S1 and S2, No Murmur Lungs: Normal Breath Sounds, No Wheeze, Rales, Rhonchi Neuro: Alert and responsive, No focal deficits noted Abdomen: Soft, Non-Tender Skin: No rashes noted on visualized skin Extremities: No Clubbing, No Cyanosis, Normal Pulses, Other (+ 1 pitting edema) Results 01/22/17 20:45 01/23/17 04:02 Lab Results 01/23/17 01/23/17 01/23/17 04:02 04:02 10:07 APTT 74.4 H D 32.8 D Sodium 138 Potassium 3.5 Chloride 100 Carbon Dioxide 26 BUN 26 Creatinine 1.22 Glucose 181 H Calcium 8.5 L Magnesium 1.7 Consult Discharge Plan - Plan Referrals: Dylon Kang MD [Partnered Physician] - 01/30/17 3:00 pm () Vern Pace CNP [Advanced Practice Nurse] - (THE OFFICE WILL CALL PATIENT AT HOME WITH FOLLOW UP APPOINTMENT)
[2017-01-23] MEDS ORDERED: *HR* Heparin 10,000 UNIT/10 ML VIAL ONE (13:52)
[2017-01-23] MEDS ORDERED: Nitroglycerin 1,000 MCG/10 ML VIAL IV ONE (13:52)
[2017-01-23] MEDS ORDERED: Heparin 1,000 UNITS/500 mL NS 500 ML ONE (13:52)
[2017-01-23] MEDS ORDERED: 0.9 % Sodium Chloride 1,000 ML ONE (13:52)
[2017-01-23] MEDS ORDERED: *HR* Midazolam HCl 2 MG/2 ML VIAL ONE (14:34)
[2017-01-23] MEDS ORDERED: Verapamil 5 MG/2 ML VIAL ONE (14:42)
--- NOTE | 2017-01-23 15:25 | Pre-Sedation Evaluation ---
Pre-sedation evaluation - Pre-sedation checklist Procedure: bronch/Ebus Recent Vitals: Last Vital Signs Temp 97.5 F L 01/23/17 11:19 Pulse 72 01/23/17 13:08 Resp 14 01/23/17 11:19 BP 119/74 01/23/17 13:08 Pulse Ox 96 01/23/17 12:13 H&P (including ROS) documented in medical record: Yes Previous reaction to sedatives/anesthetics: No Dietary Status: NPO after Midnight Airway Assessment: Patient can open mouth completely, TMJ function normal Dentition: No loose teeth or bridges, poor dentition (Upper denture), dentures removed Possible difficult airway: No ASA Classification *see protocol: CLASS III-Severe systemic disease Plan of Care: Pt appropriate candidate for procedure/moderate/conscious sedation , Risks/benefits of procedure/sedation discussed w/ patient/family, If not NPO; Risk of intake outweiged by necessity to perform procedure
[2017-01-23] MEDS: Heparin 25,000 UNIT/500 ML D5W 25,000 UNIT/500 ML MLS IVC SCH (16:46)
[2017-01-23] MEDS ORDERED: Saline Nasal Spray 44 ML BOTTLE NS PRN (19:19)
[2017-01-23] MEDS: *HR* Heparin 5,000 UNIT/ML VIAL SQ SCH (21:01)
[2017-01-23] MEDS: *HR* Amiodarone 200 MG TABLET PO SCH (21:01)
[2017-01-24] MEDS: traMADol 50 MG TABLET PO PRN (00:11)
[2017-01-24 04:58] LABS: Basophils % 0.2 %; Eosinophils # 0.4 K/mcL (0.0-0.6); Hematocrit 41.3 % (37.5-50.1); Immature Granulocytes % 0.6 % (0-4); Lymphocytes # 2.2 K/mcL (0.6-4.6); Lymphocytes % 25.7 %; Mean Corpuscular HGB Conc 32.7 g/dL (31.6-35.5); Mean Corpuscular Hemoglobin 29.6 pg (28.0-33.3); Mean Corpuscular Volume 90.6 fL (83.0-100.0); Mean Platelet Volume 10.5 fL (9.4-12.4); Monocytes # 1.1 K/mcL (0.0-1.3); Monocytes % 13.3 %; Neutrophils # 4.6 K/mcL (1.6-8.9); Platelet Count 165 K/mcL (140-400); Red Blood Count 4.56 M/mcL (4.19-5.50); Red Cell Distribution Width 13.8 % (11.5-14.5); Segmented Neutrophils % 55.2 %
[2017-01-24 05:02] LABS: BUN/Creatinine Ratio 19 (6-26); Blood Urea Nitrogen 22 mg/dL (8-26); Calcium 8.7 mg/dL (8.6-10.8); Carbon Dioxide 32 mEq/L (19-29); Chloride 99 mEq/L (98-109); Glucose 134 mg/dL (70-99); Magnesium 2.2 mg/dL (1.6-2.6); Osmolality,Calculated 291 (280-300); Potassium 3.9 mEq/L (3.5-4.5); Sodium 138 mEq/L (136-145); eGFR For African Americans > 60 (> 60); eGFR For Non-African Americans > 60 (> 60)
[2017-01-24 05:10] LABS: Hemoglobin 13.5 g/dL (12.9-16.9)
[2017-01-24] MEDS: *HR* Heparin 5,000 UNIT/ML VIAL SQ SCH ×3 (06:37→21:26)
[2017-01-24] MEDS: Insulin LISPRO 300 UNITS/3 ML VIAL SQ SCH ×4 (07:42→21:08)
[2017-01-24] MEDS: Budesonide/Formoterol 160/4.5 MDI IH SCH ×2 (08:01→21:26)
[2017-01-24] MEDS: Furosemide 40 MG/4 ML VIAL IVP SCH (08:09)
[2017-01-24] MEDS: Aspirin 81 MG TAB.CHEW PO SCH (08:10)
[2017-01-24] MEDS: Spironolactone 25 MG TABLET PO SCH (08:10)
[2017-01-24] MEDS: *HR* Amiodarone 200 MG TABLET PO SCH ×2 (08:10→21:23)
[2017-01-24] MEDS: Cetirizine HCl 5 MG/5 ML UDC PO SCH (09:27)
--- NOTE | 2017-01-24 11:12 | Internal Med Progress Note ---
<Regino Velasco - Last Filed: 01/24/17 14:14> Date of Encounter: 01/24/17 Time of Encounter: 09:45 - Assessment and plan (1) Ventricular tachycardia Current Visit: No Status: Acute Assessment and plan: Started on amiodarone/heparin in ER Cardioversion with NSR performed Continued on amiodarone Pt endorses AICD did not respond to sustained ventricular tachycardia Cardiology [facility] shows chronic total obstruction of RCA; echo ef preserved. EP Cardiology 01/24 for further pacemaker interrogation and setting change. (2) A-fib Current Visit: Yes Status: Acute Assessment and plan: Previously on Sotalol for A-Fib/VT. Now on amiodarone for VT. Sinus rhythm since cardioversion and amiodarone drip. Not anticoagulated due to fall risk and hx of Morel's esophagus. Continue ASA and Plavix. Qualifiers: Atrial fibrillation type: unspecified Qualified Code(s): I48.91 - Unspecified atrial fibrillation (3) History of coronary artery disease Current Visit: No Status: Chronic Assessment and plan: MS: 1998; AICD with Dr. Hood in [facility] Continue aspirin, plavix, lipitor; systolic dysfunction HF with bnp elevation, [facility] 01/23 describes as above, AICD evaluation 01/24. (4) Elevated troponin Current Visit: No Status: Acute Assessment and plan: 0.04; elevate likely 2/2 heart failure, unlikely ACS Trended down to 0.02 (5) Diabetes mellitus Current Visit: No Status: Acute Assessment and plan: Pt on SSI; diabetic diet. 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 Apodaca had LHC yesterday, reports no changes to sinus rhythm overnight, no chest pain. EP to evaluate today. - Constitutional Vitals: Temp Pulse Resp BP Pulse Ox 97.8 F 72 16 116/66 94 01/24/17 10:57 01/24/17 10:57 01/24/17 10:57 01/24/17 10:57 01/24/17 10:57 General appearance: Present: A&O X 3, morbidly obese - Head Head exam: Present: atraumatic - Respiratory Respiratory exam: Present: CTAB - Cardiovascular Cardiovascular exam: Present: RRR, +S1, +S2. Absent: systolic murmur - GI/Abdominal GI/Abdominal exam: Present: no peritoneal signs. Absent: tenderness - Neurological Exam Neurological exam: Absent: no focal deficits Internal Medicine: Result - Labs CBC & Chem 7: 01/24/17 04:40 01/24/17 04:40 Labs: Short CBC 01/24/17 Range/Units 04:40 WBC 8.4 (4.3-11.1) K/mcL Hgb 13.5 D (12.9-16.9) g/dL Hct 41.3 (37.5-50.1) % Plt Count 165 (140-400) K/mcL Neutrophils # 4.6 (1.6-8.9) K/mcL BMP 01/24/17 04:40 Sodium 138 Potassium 3.9 Chloride 99 Carbon Dioxide 32 H BUN 22 Creatinine 1.13 Glucose 134 H Calcium 8.7 Cardiac Enzymes 01/23/17 Range/Units 15:59 Troponin I 0.02 (0-0.03) ng/mL - ABG Interpretation ABG results: PT/INR, D-dimer PT 12.0 Seconds (9.4-12.1) 01/22/17 20:45 - Impressions Impressions Echocardiogram 01/23/17 00:04 Impressions: Technically challenging study with suboptimal windows even with use of Definity. overall, LV systolic function appears normal estimated EF 55-60%. Unable to evaluate LV segmental wall motion. RV size and function appear normal. No significant valvular dysfunction. No pulmonary hypertension. Left Ventricular Wall Motion: Rest Echo Findings The apical inferior, mid inferior, basal inferior, mid anterior septal, mid inferior lateral, basal anterior septal and basal inferior lateral loco were not visualized. All other wall segments showed normal motion. Findings: Study Quality * Technically challenging due to body habitus. ECG Findings * Normal sinus rhythm. Right Ventricle * Normal RV size with probably normal function. Left Atrium * Normal left atrial size. Right Atrium * Normal right atrial size. Aortic Valve * No aortic regurgitation. * Aortic valve not well visualized. * No aortic stenosis. Mitral Valve * No mitral regurgitation. * Mitral valve not well visualized. * No mitral stenosis. Tricuspid Valve * Tricuspid valve not well visualized. * Trace tricuspid regurgitation. * Estimated RA pressure is 3 mmHg. * Estimated RVSP is 30 mmHg. * No pulmonary hypertension. Pulmonic Valve * Pulmonic valve is not well visualized. * No pulmonic stenosis. * No pulmonic regurgitation. Pulmonary Artery * Pulmonary artery not well visualized. Aorta * Not well visualized. Pericardium * There is no pericardial effusion present. Left Ventricle * Normal LV size and wall thickness. * Moderate left ventricular diastolic dysfunction. * Definity echo contrast was used. Images were suboptimal. * LVEF 55-60%. Device lead * A device lead was visualized in the right atrium and right ventricle. Interatrial Septum * No evidence of PFO by color Doppler. IVC * Normal IVC dimensions and inspiratory collapse. Consult Discharge Plan - Plan Referrals: Dylon Kang MD [Partnered Physician] - 01/30/17 3:00 pm () Vern Pace CNP [Advanced Practice Nurse] - (THE OFFICE WILL CALL PATIENT AT HOME WITH FOLLOW UP APPOINTMENT) <Flex Porter - Last Filed: 01/24/17 16:00> Date of Encounter: 01/24/17 - Constitutional Vitals: Temp Pulse Resp BP Pulse Ox 97.5 F L 68 14 123/60 98 01/24/17 15:24 01/24/17 15:24 01/24/17 15:24 01/24/17 15:24 01/24/17 15:24 Internal Medicine: Result - Labs CBC & Chem 7: 01/24/17 04:40 01/24/17 04:40 Labs: Short CBC 01/24/17 Range/Units 04:40 WBC 8.4 (4.3-11.1) K/mcL Hgb 13.5 D (12.9-16.9) g/dL Hct 41.3 (37.5-50.1) % Plt Count 165 (140-400) K/mcL Neutrophils # 4.6 (1.6-8.9) K/mcL BMP 01/24/17 04:40 Sodium 138 Potassium 3.9 Chloride 99 Carbon Dioxide 32 H BUN 22 Creatinine 1.13 Glucose 134 H Calcium 8.7 Cardiac Enzymes 01/23/17 Range/Units 15:59 Troponin I 0.02 (0-0.03) ng/mL - ABG Interpretation ABG results: PT/INR, D-dimer PT 12.0 Seconds (9.4-12.1) 01/22/17 20:45 - Impressions Impressions Echocardiogram 01/23/17 00:04 Impressions: Technically challenging study with suboptimal windows even with use of Definity. overall, LV systolic function appears normal estimated EF 55-60%. Unable to evaluate LV segmental wall motion. RV size and function appear normal. No significant valvular dysfunction. No pulmonary hypertension. Left Ventricular Wall Motion: Rest Echo Findings The apical inferior, mid inferior, basal inferior, mid anterior septal, mid inferior lateral, basal anterior septal and basal inferior lateral loco were not visualized. All other wall segments showed normal motion. Findings: Study Quality * Technically challenging due to body habitus. ECG Findings * Normal sinus rhythm. Right Ventricle * Normal RV size with probably normal function. Left Atrium * Normal left atrial size. Right Atrium * Normal right atrial size. Aortic Valve * No aortic regurgitation. * Aortic valve not well visualized. * No aortic stenosis. Mitral Valve * No mitral regurgitation. * Mitral valve not well visualized. * No mitral stenosis. Tricuspid Valve * Tricuspid valve not well visualized. * Trace tricuspid regurgitation. * Estimated RA pressure is 3 mmHg. * Estimated RVSP is 30 mmHg. * No pulmonary hypertension. Pulmonic Valve * Pulmonic valve is not well visualized. * No pulmonic stenosis. * No pulmonic regurgitation. Pulmonary Artery * Pulmonary artery not well visualized. Aorta * Not well visualized. Pericardium * There is no pericardial effusion present. Left Ventricle * Normal LV size and wall thickness. * Moderate left ventricular diastolic dysfunction. * Definity echo contrast was used. Images were suboptimal. * LVEF 55-60%. Device lead * A device lead was visualized in the right atrium and right ventricle. Interatrial Septum * No evidence of PFO by color Doppler. IVC * Normal IVC dimensions and inspiratory collapse. - Attending Attestation I examined this patient and my medical decision-making was reviewed with the Resident Physician. I agree with the documented findings, disposition and treatment plan as described except to the extent set forth below. This is a 66 y/o M with known CAD s/p stents, HTN, HLD, Morbid obese pt, systolic CHF, Ischemic cardiomyopathy with s/p AICD was presented to ER with plpiataiuonts. He happened to be in Vtach, so he had cardioversion done in ER x 1 and started him on Amiodarone and heparin gtt. 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 Denied any CP / SOB. No palpitations Chest: Diminished BS b/l no crackles, no rales Heart : S1 S2 + RRR No murmurs a/p 1. Acute V tach mostly triggered by CHF exacerbation Improved d/c Sotalol last night switched to PO Amiodarone now resumed other home meds 2. Acute diastolic CHF exacerbation Reviewed 2D Echo showing LVEF 55-60% Improving will switch to PO Lasix 40mg PO BID Resumed other home meds cont ASA, Plavix, Statin, Aldactone 3. Paroxymal Afib d/c sotalol on Amiodarone
--- NOTE | 2017-01-24 12:07 | Electrophysiology Consult Note ---
<Hussein Pizarro R - Last Filed: 01/24/17 13:18> Date of Encounter: 01/24/17 Time of Encounter: 12:02 Assessment and Plan (1) Sustained VT (ventricular tachycardia) Status: Acute Known hx of VT, ICD implanted in 2012, failed VT ablation earlier this year at tertiary facility. 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 Echo EF preserved. Electrolytes within normal range. Was on Sotalol 80mg BID. Had previously been on higher dose, but had QT prolongation and had to be reduced. Recurrent/sustained VT on Sotalol. Required defibrillation in ED with 200J and loaded with IV amiodarone, now on PO 400mg BID. Sotalol stopped. Pt and hesitant to be on Amiodarone given his known lung disease, but risks /benefits reviewed and they agree to be on it, at least in the short term. Will monitor for amio toxicity as outpt. Continue Amiodarone 400mg BID while inpt, but decrease to 200mg BID on discharge. Refer back to [facility] to re-discuss another attempt at VT ablation. Will adjust device and lower VT setting to 160bpm so that his device will deliver ATP/fire if recurrent VT in 160 range. EP signing off. Amio 200mg BID at discharge. Follow-up as outpt with [facility] or [facility]. Will coordinate. (2) A-fib Status: Acute Hx of A-Fib, previously on Sotalol for A-Fib/VT. Now on amiodarone for VT. SR currently. Not anticoagulated due to hx of Morel's esophagus. Continue ASA and Plavix. Qualifiers: Atrial fibrillation type: unspecified Qualified Code(s): I48.91 - Unspecified atrial fibrillation (3) CAD (coronary artery disease) Status: Acute LHC yesterday. Total RCA occluded with collaterals. Continue medical management. Qualifiers: Coronary Disease-Associated Artery/Lesion type: [place] artery [place] vs. transplanted heart: [place] heart Associated angina: with unspecified angina Qualified Code(s): I25.119 - Atherosclerotic heart disease of [place] coronary artery with unspecified angina pectoris Discussion w patient/family: The assessment and plan as outlined above was discussed with the patient and/or family members who expressed understanding and agreement. All questions were answered. Thank you for involving us in the care of your patient. Please call with any questions. I will discuss all the above with Dr. Panchito Carrillo and make changes as necessary. History of Present Illness Consult date: 01/24/17 Requesting physician: Wilmer Hwoell Consult reason: VT Chief complaint: dyspnea History of present illness: Mr. Apodaca is a 66 year old male with a past medical history of A-Fib and VT s/p AICD placement and on Sotalol, failed VT ablation earlier this year at tertiary facility, diabetes type 2 not insulin-dependent, presented to ED with complaints of 2 weeks of shortness of breath that had worsened in the past 24 hours, dry cough, reported elevated HR up to the 160s for 24 hours. BNP was 1417. Pt found to be in V. tach, required defibrillation x 1 with 200 J and then started on amiodarone drip, now on PO Amio 400mg BID. EF is preserved. 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 His ICD was interrogated, rate of defibrillation is set for 176 and his VT Rates were 150s-160s, which is why his defibrillator did not fire. is concerned about pt on amiodarone or BB. Sotalol was stopped by general cardiology since amio was started. EP consulted for further recommendations. Past Med Surg Social Fam HX - Past Medical History Medical history: atrial fibrillation (Not on anticoagulation currently on sotalol), COPD (Oxygen dependent using 2 L at home), coronary artery disease, diabetes (Not insulin-dependent), hyperlipidemia, myocardial infarction, other ( BPH, chronically elevated troponins, CAD, cardioversion in the past,) Psychiatric history: anxiety - Past Surgical History Surgical History: herniorrhaphy, orthopedic, other (Shoulder arthroscopy), pacemaker/AICD, vascular surgery, other (Cardiac ablation), AICD, pacemaker - Social History Smoking Status: Former smoker Packs per day: Quit 5 years ago Smokeless Tobacco Status: No Alcohol use: none Drug use: none - Family History Father Living Status: Mother Living Status: Hx Family Endocrine Disorder: Yes (Diabetes) Brother Living Status: Still Living Hx Family Cardiac Disorders: Yes (Hypertension) Hx Family Endocrine Disorder: Yes (Diabetes) Sister Living Status: Still Living Hx Family Endocrine Disorder: Yes (Diabetes) Medications and Allergies Aclidinium Oolitic [Tudorza Pressair] 1 puff IH BID #0 12/26/14 [History] Albuterol Sulfate [Albuterol Inhaler] 2 puff IH Q4HR PRN #0 12/26/14 [History] Budesonide/Formoterol 160/4.5 [Symbicort] 2 puff IH BIDR #1 inhaler 12/29/14 [Rx ] Nitroglycerin [Nitrostat] 0.4 mg SL Q5M PRN 03/07/15 [History] TraMADol [Ultram] 100 mg PO TID PRN 03/07/15 [History] Aspirin 81 mg PO DAILY 11/05/16 [History] Clopidogrel [Plavix] 75 mg PO DAILY 11/05/16 [History] Metformin HCl [Metformin HCl ER] 500 mg PO 3XW 11/05/16 [History] Spironolactone [Aldactone] 25 mg PO DAILY 11/05/16 [History] Albuterol Neb [AccuNeb] 1.25 mg IH Q8H PRN 01/22/17 [History] Omeprazole [PriLOSEC] 40 mg PO BID 01/22/17 [History] Oxycodone HCl/Acetaminophen [Percocet 5-325 mg Tablet] 1 each PO Q6H PRN [History] Oxygen 3 l NS AD 01/22/17 [History] Amiodarone [Cordarone] 200 mg PO BID #60 tablet 01/25/17 [Rx] Furosemide [Lasix] 40 mg PO BIDDIURETIC #60 tablet 01/25/17 [Rx] Atorvastatin [Lipitor] 40 mg PO HS 01/27/17 [History] Silodosin [Rapaflo] 8 mg PO DAILY 01/27/17 [History] 3 Allergy/AdvReac Type Severity Reaction Status Date / Time rofecoxib [From Vioxx] Allergy Difficulty Verified 01/27/17 00:25 Breathing All Systems Review: A 10-system review of systems was performed and is negative for pertinent findings except as documented above in the HPI. - Cardiovascular Cardiovascular: as per HPI, dyspnea at rest, dyspnea on exertion, palpitations, rapid heart rate - Respiratory Respiratory: dyspnea Physical Examination Vital Signs, Last 4 Hours Temp Pulse Resp BP Pulse Ox 01/24/17 10:57 97.8 F 72 16 116/66 94 01/24/17 08:16 64 01/24/17 08:03 16 98 Vital Signs Temp Pulse Resp BP Pulse Ox 01/24/17 10:57 97.8 F 72 16 116/66 94 01/24/17 08:16 64 01/24/17 08:03 16 98 01/24/17 07:02 97.8 F 72 16 199/63 98 01/24/17 03:30 60 01/24/17 03:11 97.6 F 59 16 117/59 98 01/24/17 00:00 60 129/69 01/23/17 23:44 59 91/44 96 01/23/17 22:16 60 16 94/71 97 01/23/17 21:11 65 16 113/61 94 01/23/17 20:22 19 92 01/23/17 18:48 97.6 F 63 18 96 01/23/17 17:00 65 98 103/63 16 01/23/17 16:46 97.6 F 01/23/17 16:45 16 104/78 97 01/23/17 16:00 67 16 107/71 97 01/23/17 15:45 68 18 111/77 98 01/23/17 15:20 68 16 128/87 95 01/23/17 13:08 72 119/74 01/23/17 12:29 64 125/66 01/23/17 12:13 61 96 Intake and Output 01/23/17 01/24/17 01/24/17 23:59 07:59 15:59 Intake Total 472 / 472 240 / 240 500 / 500 Output Total 1100 / 1100 250 / 250 650 / 650 Balance -628 / -628 -10 / -10 -150 / -150 Intake: IV Fluids 472 / 472 Amiodarone Drip Premix 360mg/ 100 / 100 200mL 360 mg In 200 ml @ 0.5 MG /MIN 16.667 mls/hr IVC CONT CHON Rx#:[id number] Heparin 25,000 UNIT/500 ML D5W 322 / 322 25,000 unit In 500 ml @ 12 UNIT /KG/HR 32.114 mls/hr IVC . [id number] CHON Rx#:[id number] Magnesium Sulfate Premix 2gm/ 50 / 50 50mL 2 gm In 50 ml @ 48.077 mls /hr IVPB ONCE ONE Rx#: [id number] Oral 240 / 240 500 / 500 Output: Urine 1100 / 1100 250 / 250 650 / 650 Other: Meal Dinner Breakfast Percent of Meal Consumed 100% 100% Blood Glucose* 177 111 137 General: Conversant, No Apparent Distress HEENT: Atraumatic, Normocephaly, Mucus Membranes Moist Neck: No JVD, Normal carotid pulses Cardiac: Reg Rate and Rhythm, Normal S1 and S2, No Murmur Lungs: Other (diminished) Neuro: Alert and responsive, No focal deficits noted Abdomen: Soft, Non-Tender Skin: No rashes noted on visualized skin Musculoskeletal: No Chest Wall Tenderness Extremities: Other (mild LE edema) Results 01/24/17 04:40 01/24/17 04:40 Lab Results 01/23/17 01/23/17 01/24/17 15:59 15:59 04:40 WBC 8.4 Hgb 13.5 D Hct 41.3 Plt Count 165 APTT 47.5 H Sodium Potassium Chloride Carbon Dioxide BUN Creatinine Glucose Calcium Magnesium Troponin I 0.02 01/24/17 04:40 WBC Hgb Hct Plt Count APTT Sodium 138 Potassium 3.9 Chloride 99 Carbon Dioxide 32 H BUN 22 Creatinine 1.13 Glucose 134 H Calcium 8.7 Magnesium 2.2 Troponin I Short CBC 01/24/17 Range/Units 04:40 WBC 8.4 (4.3-11.1) K/mcL Hgb 13.5 D (12.9-16.9) g/dL Hct 41.3 (37.5-50.1) % Plt Count 165 (140-400) K/mcL Neutrophils # 4.6 (1.6-8.9) K/mcL BMP 01/24/17 Range/Units 04:40 Sodium 138 (136-145) mEq/L Potassium 3.9 (3.5-4.5) mEq/L Chloride 99 (98-109) mEq/L Carbon Dioxide 32 H (19-29) mEq/L BUN 22 (8-26) mg/dL Creatinine 1.13 (0.72-1.25) mg/dL Glucose 134 H (70-99) mg/dL Calcium 8.7 (8.6-10.8) mg/dL Cardiac Enzymes 01/23/17 Range/Units 15:59 Troponin I 0.02 (0-0.03) ng/mL Impressions Echocardiogram 01/23/17 00:04 Impressions: Technically challenging study with suboptimal windows even with use of Definity. overall, LV systolic function appears normal estimated EF 55-60%. Unable to evaluate LV segmental wall motion. RV size and function appear normal. No significant valvular dysfunction. No pulmonary hypertension. Left Ventricular Wall Motion: Rest Echo Findings The apical inferior, mid inferior, basal inferior, mid anterior septal, mid inferior lateral, basal anterior septal and basal inferior lateral loco were not visualized. All other wall segments showed normal motion. Findings: Study Quality * Technically challenging due to body habitus. ECG Findings * Normal sinus rhythm. Right Ventricle * Normal RV size with probably normal function. Left Atrium * Normal left atrial size. Right Atrium * Normal right atrial size. Aortic Valve * No aortic regurgitation. * Aortic valve not well visualized. * No aortic stenosis. Mitral Valve * No mitral regurgitation. * Mitral valve not well visualized. * No mitral stenosis. Tricuspid Valve * Tricuspid valve not well visualized. * Trace tricuspid regurgitation. * Estimated RA pressure is 3 mmHg. * Estimated RVSP is 30 mmHg. * No pulmonary hypertension. Pulmonic Valve * Pulmonic valve is not well visualized. * No pulmonic stenosis. * No pulmonic regurgitation. Pulmonary Artery * Pulmonary artery not well visualized. Aorta * Not well visualized. Pericardium * There is no pericardial effusion present. Left Ventricle * Normal LV size and wall thickness. * Moderate left ventricular diastolic dysfunction. * Definity echo contrast was used. Images were suboptimal. * LVEF 55-60%. Device lead * A device lead was visualized in the right atrium and right ventricle. Interatrial Septum * No evidence of PFO by color Doppler. IVC * Normal IVC dimensions and inspiratory collapse. Active Medications Acetaminophen (Tylenol) 650 mg PO Q6HR PRN PRN Reason: Mild Pain (1-3) Stop: 07/25/17 00:03 Albuterol/Ipratropium (Duoneb) 3 ml IH Q6HR PRN PRN Reason: Shortness Of Breath Stop: 07/24/17 23:59 Amiodarone HCl (Cordarone) 400 mg PO BID [facility] Stop: 07/25/17 21:01 Last Admin: 01/24/17 08:10 Dose: 400 mg Aspirin (Aspirin) 81 mg PO DAILY [facility] Stop: 07/25/17 09:01 Last Admin: 01/24/17 08:10 Dose: 81 mg Atorvastatin Calcium (Lipitor) 20 mg PO HS [facility]ON Stop: 07/25/17 21:01 Last Admin: 01/23/17 21:01 Dose: 20 mg Budesonide/Formoterol Fumarate (Symbicort) 2 puff IH BIDR CHON PRN Reason: Protocol Stop: 07/25/17 10:01 Last Admin: 01/24/17 08:01 Dose: 2 puff Cetirizine HCl (Zyrtec) 5 mg PO DAILY [facility] Stop: 07/25/17 09:46 Last Admin: 01/24/17 09:27 Dose: 5 mg Clopidogrel Bisulfate (Plavix) 75 mg PO DAILY [facility] Stop: 07/25/17 09:01 Last Admin: 01/24/17 08:10 Dose: 75 mg Dextrose/Water (Dextrose 50% (Syg)) 25 ml IVP AD PRN PRN Reason: Hypoglycemia Stop: 07/25/17 00:17 Furosemide (Lasix) 40 mg IVP BIDDIURETIC [facility] Stop: 07/25/17 00:16 Last Admin: 01/24/17 08:09 Dose: 40 mg Glucagon (Glucagen) 1 mg IM ONCE PRN PRN Reason: Hypoglycemia Stop: 07/25/17 00:17 Glucose (Gluctose) 15 gm PO ONCE PRN PRN Reason: Hypoglycemia Stop: 07/25/17 00:17 Glucose (Gluctose) 30 gm PO ONCE PRN PRN Reason: Hypoglycemia Stop: 07/25/17 00:17 Heparin Sodium (Porcine) (Heparin) 5,000 unit SQ Q8HCO [facility] Stop: 07/25/17 22:01 Last Admin: 01/24/17 06:37 Dose: 5,000 unit Amiodarone HCl/Dextrose (Amiodarone Drip Premix 360mg/200ml) 360 mg in 200 mls @ 16.667 mls/hr IVC CONT CHON PRN Reason: 0.5 MG/MIN Stop: 07/24/17 21:46 Last Infusion: 01/23/17 22:00 Dose: Infused Dextrose (Dextrose 5%) 1,000 mls @ 100 mls/hr IVC .Q10H PRN PRN Reason: HYPOGLYCEMIA Stop: 07/25/17 00:17 Insulin Human Lispro (Humalog) 0 units SQ TIDAC CHON PRN Reason: Protocol Stop: 07/25/17 07:31 Last Admin: 01/24/17 11:15 Dose: Not Given Insulin Human Lispro (Humalog) 0 units SQ HS CHON PRN Reason: Protocol Stop: 07/25/17 00:31 Last Admin: 01/23/17 20:46 Dose: Not Given Morphine Sulfate (Morphine Sulfate) 2 mg IVP Q4HR PRN PRN Reason: Severe Pain (7-10) Stop: 07/25/17 00:03 Naloxone HCl (Narcan) 0.4 mg IVP Q2MIN PRN PRN Reason: Opioid Reversal Stop: 07/25/17 00:03 Nitroglycerin (Nitroglycerin) 0.4 mg SL Q5M PRN PRN Reason: Chest Pain Stop: 07/24/17 23:59 Omeprazole (Prilosec) 40 mg PO BIDAC [facility]ON Stop: 07/25/17 07:31 Last Admin: 01/24/17 08:10 Dose: 40 mg Oxycodone/Acetaminophen (Percocet 5/325) 1 each PO Q6H PRN PRN Reason: moderate pain Stop: 07/24/17 23:59 Last Admin: 01/23/17 08:55 Dose: 1 each Sodium Chloride ([place] Nasal [place]) 2 spray NS Q2H PRN PRN Reason: Congestion Stop: 07/25/17 19:20 Last Admin: 01/23/17 19:50 Dose: 2 spray Spironolactone (Aldactone) 25 mg PO DAILY [facility] Stop: 07/25/17 09:01 Last Admin: 01/24/17 08:10 Dose: 25 mg Tramadol HCl (Ultram) 100 mg PO TID PRN PRN Reason: Pain Stop: 07/25/17 02:38 Last Admin: 01/24/17 00:11 Dose: 100 mg - Imaging and Cardiology Echo: report reviewed Cardiac cath: report reviewed - EKG Interpretation EKG results cardiology: personally reviewed, other (12 hr tele AVG HR) Consult Discharge Plan - Plan Instructions: Amiodarone (By mouth), Atrial Fibrillation (DC), Meal Planning with Diabetes Exchanges (DC) Additional Instructions: RISK FACTORS: STOP SMOKING: If you smoke, STOP. Smoking or tobacco use significantly increases your risk of heart disease because nicotine causes the arteries to narrow or constrict. It also causes fats to stick to the artery. Your chances of having a heart attack are greatly increased if you continue to smoke. For more information, call the education line for smoking cessation 0-316-WFWBHPM EAT A LOW FAT/CHOLESTEROL/SODIUM DIET: This diet may help reduce your chances of having a heart attack. LIFTING: With affected extremity: Avoid bending, pushing off and lifting more than 2 pounds for 24 hours The following 48 hours, avoid lifting anything more than 5 pounds Avoid strenuous activity or repetitive motions ACTIVITY: You may walk or climb stairs as tolerated You can resume sexual activity as tolerated In general, you are encouraged to engage in a minimum of 30 minutes or more of moderate intensity physical activity, such as brisk walking, daily or at least 3 -4 times weekly BATHING Do not submerge the site into water (bath tub, hot tub, swimming pool, dishes) for 1 week. This can be a source for infection into the blood stream. You may shower after 24 hours SITE CARE: After 24 hours, you may remove the dressing and leave the site open to air. Keep the site clean and dry. Clean gently and pat dry. You can expect bruising and tenderness that gradually resolve within a week or two. Return to work as instructed per your physician Resume driving as instructed per physician Keep all scheduled follow up appointments Resume medications as instructed IMPORTANT: If prescribed a Platelet Aggregation Inhibitor such as, Plavix, Brilinta or Effient: Duration of therapy is minimum one year These medications are often used in combination with Aspirin in prevention of future heart attacks Never discontinue unless consult with your Machining Supervisor STROKE (CVA) Risk factors for a stroke are: Age, cigarette smoking, diabetes, excessive alcohol consumption, family history, high blood pressure, overweight, physical inactivity, prior stroke, heart attack, diagnosis of carotid artery stenosis or other artery disease. Warning signs: Sudden numbness or weakness of the face, arm or leg; especially on one side of the body, sudden confusion, trouble speaking or understanding, sudden trouble seeing in one or both eyes, sudden trouble walking, dizziness, loss of balance or coordination, sudden severe headache with no cause. Call 911 or go to the Emergency Room. CONGESTIVE HEART FAILURE: If you have been diagnosed with Congestive Heart Failure (CHF) and your symptoms return, make an appointment with your physician Weigh yourself daily. Notify your physician if you have a weight gain of two or more pounds in one day or five or more pounds in one week. If you experience any difficulty breathing, please call 911 BLEEDING: Although the risk of bleeding is minimal, it can happen. If you have any bleeding from the site, apply firm pressure above the puncture site for 10-15 minutes. If the bleeding does not stop, continue manual pressure and call 911 Contact [facility] ( ) if: You develop a fever greater than 101 degrees Fahrenheit Your site becomes reddened or has any drainage You have an increase in pain or burning at the site or if a large knot forms at the site. If you experience chest pain, shortness of breath, dizziness, or extreme tiredness, stop the activity and rest. Please notify [facility] office if you experience any of these symptoms and they are not relieved by rest please call 911! Mr. Apodaca to f/u with PCP within 2 weeks; Cardiology w/in 1 week. Has appointment with pulmonology within the month. Referrals: Dylon Kang MD [Partnered Physician] - 01/30/17 3:00 pm () Ibrahima Brown MD [Partnered Physician] - Vern Pace CNP [Advanced Practice Nurse] - (THE OFFICE WILL CALL PATIENT AT HOME WITH FOLLOW UP APPOINTMENT) Prescriptions: Amiodarone [Cordarone] 200 mg PO BID #60 tablet Furosemide [Lasix] 40 mg PO BIDDIURETIC #60 tablet <Panchito Carrillo - Last Filed: 01/27/17 15:23> Date of Encounter: 01/27/17 - Attending Attestation I have personally performed a face to face evaluation on this patient. I have reviewed and agree with the care plan. History and Exam by me shows: Sustained VT under rate cutoff of device. Would recommend loading amio and will adjust VT zone to cover clinical VT. Assessment and Plan Discussion w patient/family: The assessment and plan as outlined above was discussed with the patient and/or family members who expressed understanding and agreement. All questions were answered. Thank you for involving us in the care of your patient. Please call with any questions. History of Present Illness History of present illness: Mr. Apodaca is a 66 year old male All Systems Review: A 10-system review of systems was performed and is negative for pertinent findings except as documented above in the HPI. Results 01/24/17 04:40 01/24/17 04:40
[2017-01-24] MEDS: *HR* OxyCODONE/APAP 5/325 TABLET PO PRN ×2 (12:26→21:26)
[2017-01-24] MEDS: Furosemide 40 MG TABLET PO SCH (17:12)
[2017-01-25] MEDS: traMADol 50 MG TABLET PO PRN (03:56)
[2017-01-25] MEDS: *HR* Heparin 5,000 UNIT/ML VIAL SQ SCH (03:57)
[2017-01-25] MEDS: *HR* Amiodarone 200 MG TABLET PO SCH (07:26)
[2017-01-25] MEDS: Spironolactone 25 MG TABLET PO SCH (07:26)
[2017-01-25] MEDS: Furosemide 40 MG TABLET PO SCH (07:26)
[2017-01-25] MEDS: Aspirin 81 MG TAB.CHEW PO SCH (07:26)
[2017-01-25] MEDS: Cetirizine HCl 5 MG/5 ML UDC PO SCH (07:26)
[2017-01-25] MEDS: Budesonide/Formoterol 160/4.5 MDI IH SCH (08:02)
[2017-01-25] MEDS: Insulin LISPRO 300 UNITS/3 ML VIAL SQ SCH (08:07)
[2017-01-25 09:03] VITALS: BP 125/67
--- NOTE | 2017-01-25 09:25 | Discharge Summary ---
<Regino Velasco - Last Filed: 01/25/17 09:52> Date of Encounter: 01/25/17 Time of Encounter: 08:45 - Discharge Diagnosis (1) Ventricular tachycardia Priority: Primary Status: Acute (2) A-fib Priority: Secondary Status: Acute Qualifiers: Atrial fibrillation type: unspecified Qualified Code(s): I48.91 - Unspecified atrial fibrillation (3) History of coronary artery disease Priority: Secondary Status: Chronic (4) Elevated troponin Priority: Secondary Status: Acute (5) Diabetes mellitus Priority: Secondary Status: Acute Qualifiers: Diabetes mellitus type: type 2 Diabetes mellitus complication status: without complication Diabetes mellitus care home insulin use: without intermediate card tender use Qualified Code(s): E11.9 - Type 2 diabetes mellitus without complications (6) MANUEL on CPAP Priority: Secondary Status: Acute (7) History of COPD Priority: Secondary Status: Chronic (8) Obesity (BMI 30-39.9) Priority: Secondary Status: Acute - Discharge Medications Prescriptions: Amiodarone [Cordarone] 200 mg PO BID #60 tablet Furosemide [Lasix] 40 mg PO BIDDIURETIC #60 tablet Silodosin [Rapaflo] 8 mg PO DAILY #90 capsule Home Medications: Aclidinium [place] [Tudorza Pressair] 1 puff IH BID #0 12/26/14 [History] Albuterol Sulfate [Albuterol Inhaler] 2 puff IH Q4HR PRN #0 12/26/14 [History] Budesonide/Formoterol 160/4.5 [Symbicort] 2 puff IH BIDR #1 inhaler 12/29/14 [Rx ] Nitroglycerin [Nitrostat] 0.4 mg SL Q5M PRN 03/07/15 [History] TraMADol [Ultram] 100 mg PO TID PRN 03/07/15 [History] Aspirin 81 mg PO DAILY 11/05/16 [History] Atorvastatin Calcium [Lipitor] 20 mg PO HS 11/05/16 [History] Clopidogrel [Plavix] 75 mg PO DAILY 11/05/16 [History] Ipratropium/Albuterol Neb [Duoneb] 3 ml IH Q6HR PRN 11/05/16 [History] Metformin HCl [Metformin HCl ER] 500 mg PO 3XW 11/05/16 [History] Spironolactone [Aldactone] 25 mg PO DAILY 11/05/16 [History] Acetylcysteine 10% 2 ml IH Q8H PRN 01/22/17 [History] Albuterol Neb [AccuNeb] 1.25 mg IH Q8H PRN 01/22/17 [History] Omeprazole [PriLOSEC] 40 mg PO BID 01/22/17 [History] Oxycodone HCl/Acetaminophen [Percocet 5-325 mg Tablet] 1 each PO Q6H PRN [History] Oxygen 3 l NS AD 01/22/17 [History] Amiodarone [Cordarone] 200 mg PO BID #60 tablet 01/25/17 [Rx] Furosemide [Lasix] 40 mg PO BIDDIURETIC #60 tablet 01/25/17 [Rx] Silodosin [Rapaflo] 8 mg PO DAILY #90 capsule 01/25/17 [Rx] Allergies/Adverse Reactions: 3 Allergy/AdvReac Type Severity Reaction Status Date / Time rofecoxib [From Vioxx] Allergy Difficulty Verified 11/05/16 08:10 Breathing Procedures/tests Complete & Pending: Procedures Performed prior 72 hours Category Date Time Status CL Cardiac Catheterization [CL] Routine Blocking Machine Operator 01/23/17 10:28 Ordered EV arterial imaging LE BI Routine Y 01/23/17 15:04 Completed EV echocardiogram w enhance Routine Y 01/23/17 00:04 Completed Date of admission: 01/22/17 23:54 Primary care physician: PCP NONE Consults: 01/24/17 12:52 Consult to Electrophysiology (EP) [CONS] Routine Consulting Provider: [facility] Reason for Consult: [place] Call Completed: Yes - Patient Status Disposition: Home, Self-Care Condition: Fair Functional capacity at discharge: independent ambulation Overall status at discharge: patient is progressing back to baseline - Discharge Instructions Instructions: Amiodarone (By mouth), Atrial Fibrillation (DC), Meal Planning with Diabetes Exchanges (DC) Follow Up With: Dylon Kang MD [Partnered Physician] - 01/30/17 3:00 pm () Vern Pace CNP [Advanced Practice Nurse] - (THE OFFICE WILL CALL PATIENT AT HOME WITH FOLLOW UP APPOINTMENT) Ibrahima Brown MD [Partnered Physician] - Additional Instructions: RISK FACTORS: STOP SMOKING: If you smoke, STOP. Smoking or tobacco use significantly increases your risk of heart disease because nicotine causes the arteries to narrow or constrict. It also causes fats to stick to the artery. Your chances of having a heart attack are greatly increased if you continue to smoke. For more information, call the education line for smoking cessation 6-092-[id number] EAT A LOW FAT/CHOLESTEROL/SODIUM DIET: This diet may help reduce your chances of having a heart attack. LIFTING: With affected extremity: Avoid bending, pushing off and lifting more than 2 pounds for 24 hours The following 48 hours, avoid lifting anything more than 5 pounds Avoid strenuous activity or repetitive motions ACTIVITY: You may walk or climb stairs as tolerated You can resume sexual activity as tolerated In general, you are encouraged to engage in a minimum of 30 minutes or more of moderate intensity physical activity, such as brisk walking, daily or at least 3 -4 times weekly BATHING Do not submerge the site into water (bath tub, hot tub, swimming pool, dishes) for 1 week. This can be a source for infection into the blood stream. You may shower after 24 hours SITE CARE: After 24 hours, you may remove the dressing and leave the site open to air. Keep the site clean and dry. Clean gently and pat dry. You can expect bruising and tenderness that gradually resolve within a week or two. Return to work as instructed per your physician Resume driving as instructed per physician Keep all scheduled follow up appointments Resume medications as instructed IMPORTANT: If prescribed a Platelet Aggregation Inhibitor such as, Plavix, Brilinta or Effient: Duration of therapy is minimum one year These medications are often used in combination with Aspirin in prevention of future heart attacks Never discontinue unless consult with your Aerospace Quality Engineer STROKE (CVA) Risk factors for a stroke are: Age, cigarette smoking, diabetes, excessive alcohol consumption, family history, high blood pressure, overweight, physical inactivity, prior stroke, heart attack, diagnosis of carotid artery stenosis or other artery disease. Warning signs: Sudden numbness or weakness of the face, arm or leg; especially on one side of the body, sudden confusion, trouble speaking or understanding, sudden trouble seeing in one or both eyes, sudden trouble walking, dizziness, loss of balance or coordination, sudden severe headache with no cause. Call 911 or go to the Emergency Room. CONGESTIVE HEART FAILURE: If you have been diagnosed with Congestive Heart Failure (CHF) and your symptoms return, make an appointment with your physician Weigh yourself daily. Notify your physician if you have a weight gain of two or more pounds in one day or five or more pounds in one week. If you experience any difficulty breathing, please call 911 BLEEDING: Although the risk of bleeding is minimal, it can happen. If you have any bleeding from the site, apply firm pressure above the puncture site for 10-15 minutes. If the bleeding does not stop, continue manual pressure and call 911 Contact [facility] ( ) if: You develop a fever greater than 101 degrees Fahrenheit Your site becomes reddened or has any drainage You have an increase in pain or burning at the site or if a large knot forms at the site. If you experience chest pain, shortness of breath, dizziness, or extreme tiredness, stop the activity and rest. Please notify [facility] office if you experience any of these symptoms and they are not relieved by rest please call 911! Mr. Apodaca to f/u with PCP within 2 weeks; Cardiology w/in 1 week. Has appointment with pulmonology within the month. - Diet and Activity Activity: increase activity as tolerated Diet: advance to your usual diet, low salt diet Hospital course: Mr. Apodaca is a 66 year old male with medical history of NH 1998, a-fib, CAD, systolic CHF, ischemic cardiomyopathy with AICD, COPD, who presented to the ER with palpitations and was admitted for ventricular tachycardia. Initial evaluation demonstrated ventricular tachycardia on EKG; patient was cardioverted and started on amiodarone drip. Cardiac cath done showed PRICING SUPERVISOR of RCA , EP evaluation of AICD changed ATP/fire threshold to 160 for persistent ventricular tachycardia. Patient demonstrated NSR since throughout hospital course, discharged home in stable condition with discontinuation of sotalol, amiodarone 200mg BID, continuation of ASA/Plavix and CAD medications. - Time Spent with Patient Total time spent providing and/or coordinating discharge services: - Constitutional Vitals: Temp Pulse Resp BP Pulse Ox 97.6 F 85 15 125/67 94 01/25/17 06:36 01/25/17 06:36 01/25/17 06:36 01/25/17 09:01 01/25/17 09:01 General appearance: Present: A&O X 3, morbidly obese - Neck Neck exam general surgery: Present: full ROM. Absent: lymphadenopathy - Respiratory Respiratory exam: Present: CTAB. Absent: respiratory distress, rhonchi, tachypnea - Cardiovascular Cardiovascular exam: Present: RRR, +S1, +S2. Absent: irregular rhythm, tachycardia - GI/Abdominal GI/Abdominal exam: Present: no peritoneal signs. Absent: tenderness - Neurological Exam Neurological exam: Present: no focal deficits. Absent: facial droop, speech deficit - Skin Additional comments: RUE ecchymosis; non-expanding, healing <Flex Porter - Last Filed: 01/25/17 17:32> Date of Encounter: 01/25/17 Procedures/tests Complete & Pending: Procedures Performed prior 72 hours Category Date Time Status CL Cardiac Catheterization [CL] Routine Blocking Machine Operator 01/23/17 10:28 Ordered EV arterial imaging LE BI Routine Y 01/23/17 15:04 Completed EV echocardiogram w enhance Routine Y 01/23/17 00:04 Completed Date of admission: 01/22/17 23:54 Primary care physician: PCP NONE Consults: 01/24/17 12:52 Consult to Electrophysiology (EP) [CONS] Routine Consulting Provider: Electrophys[facility] Reason for Consult: [place] Call Completed: Yes Hospital course: Mr. Apodaca is a 66 year old male - Time Spent with Patient Total time spent providing and/or coordinating discharge services: - Constitutional Vitals: Temp Pulse Resp BP Pulse Ox 97.6 F 85 16 125/67 94 01/25/17 06:36 01/25/17 06:36 01/25/17 08:02 01/25/17 09:01 01/25/17 09:01 - Attending Attestation I examined this patient and my medical decision-making was reviewed with the Resident Physician. I agree with the documented findings, disposition and treatment plan as described except to the extent set forth below. This is a 66 y/o M with known CAD s/p stents, HTN, HLD, Morbid obese pt, systolic CHF, Ischemic cardiomyopathy with s/p AICD was presented to ER with palpitations. He happened to be in Vtach, so he had cardioversion done in ER x 1 and started him on Amiodarone and heparin gtt. He had cardiac cath done y/d which showed PRICING SUPERVISOR of RCA, Now pt is alert, awake and O x3. Denied any CP / SOB. No palpitations Chest: Diminished BS b/l no crackles, no rales Heart : S1 S2 + RRR No murmurs a/p 1. Acute V tach mostly triggered by CHF exacerbation Improved d/c Sotalol 36hrs ago Tolerating PO Amiodarone well resumed other home meds 2. Acute diastolic CHF exacerbation improved Recommend PO Lasix 40mg PO BID Resumed other home meds cont ASA, Plavix, Statin, Aldactone 3. Paroxymal Afib d/c sotalol on Amiodarone
--- NOTE | 2017-01-25 11:38 | Electrocardiograph Report ---
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
--- NOTE | 2017-01-28 21:28 | Electrocardiograph Report ---
[place] [address] Test Date: 2017-01-25 Pat Name: Ishan Apodaca Department: 110 Room: 05 Gender: M Database Architect: JASON : 1950 Requested By: Flex Porter Order Number: [id number] Reading MD: Amish Nava MD Measurements Intervals [place] Rate: 75 P: 46 MD: 184 QRS: 33 QRSD: 120 T: 85 QT: 441 QTc: 470 Interpretive Statements SINUS RHYTHM BASELINE ARTIFACT Electronically Signed On 01-28-2017 21:27:18 EST by Amish Nava MD
--- NOTE | 2017-01-30 13:37 | Invasive Diagnostic Lab Proc ---
Name: Ishan Apodaca Date of Study: 01/23/2017 Date: 1950 Ht: 77.2in Medical Record#: [id number] Age: 66 Wt: 308.65lb Gender: Male BSA: 2.69 Order #: [id number] BMI: 36.44 Physicians Procedure Physician: Neo Zaidi DO Referring MD: Referring MD: Staff Name Position Time In Bekah Corona RT (R) Scrub 02:32 PM Marilu Turner RN Survey Technologist 02:32 PM Juliette Pelletier RN Monitor 02:32 PM Indications Indication Coronary Artery Disease Procedures Performed Procedure L HRT ARTERY/VENTRICLE ANGIO Pre-Procedure Checklist Informed consent is complete signed and on chart. H&P is on chart. ID band is on and ID verified with patient. Patient NPO for procedure The procedure was described for the patient and questions were answered. Blood Pressure: 146/85 ECG is on chart. Rhythm: NSR Plan of Care Patient will tolerate the procedure without complications. Adequate level of comfort will be maintained. Hemodynamics will remain stable Patient will recover from procedure without complications. Respiratory function will be maintained. Cardiac rhythm will remain stable. Patient temperature will be maintained. Patient and/or family have verbalized understanding of the procedure. Patient Education Chief Complaint/Reason for Test: Cardiac Cath Developmental Category: Geriatric (65+ years) Developmentally Appropriate for Age: Yes Learning Barriers: None Education Needs: Procedure Education Method: Verbal Information Taught: Cardiac Cath Educational Evaluation: Able to repeat information Intravenous Access Time IV Size Location DC'd Fluid/Drip Rate Units RN 02:31 PM midline Rt upper Arm 0.9NaCl 25 ml/hr Marilu Turner RN 02:31 PM midline Rt upper Arm Amiodarone 0.5 mg/hr Marilu Turner RN 02:31 PM 20g 1 1/4" Patent On Arrival Rt Wrist Marilu Turner RN Allergies Vioxx rofecoxib Vital Signs Time BP (mmHg) HR (bpm) O2 Sat. RR (bpm) LOC 02:37 PM / % 5 = Fully awake and oriented or at pre-proc level 02:37 PM / % 5 = Fully awake and oriented or at pre-proc level 02:36 PM 146 / 85 66 99 % 15 02:41 PM 120 / 70 66 92 % 12 02:45 PM 122 / 74 65 96 % 21 02:51 PM 108 / 76 65 96 % 19 02:55 PM 116 / 69 66 96 % 22 03:00 PM 121 / 70 69 96 % 16 Procedural Medications Time Medication Dose Units Method Given By 02:32 PM Oxygen 2 L/min nasal cannula Marilu Turner RN 02:36 PM Versed 2 mg Intravenous Marilu Turner RN 02:47 PM Lidocaine 2% 2 ml Subcutaneous Neo Zaidi DO 02:53 PM Nitroglycerin 200 mcg 02:53 PM Verapamil 2.5 mg Intraarterial Neo Zaidi DO ASA Classification: CLASS III- Severe systemic disease (i.e. prior AMI, diabetes with vascular complications, morbid obesity) Neeraj Score Preprocedure Postprocedure Activity 2- Moves 4 extremities sustained head lift Activity Circulation 2- SBP +/= 20 points of pre-anesthetic level Circulation Consciousness 2- Awake and alert oriented x 3 Consciousness O2 Saturation 2- Able to maintain O2 satruation of 92% on room air O2 Saturation Respiratory 2- Able to deep breathe and cough well Respiratory Total Score 10 Total Score Contrast Agent: Isovue Diagnostic Contrast: 45 ml Total Contrast: 45 ml Fluoro Dose: 462 mGy Procedure Log Time Note Enter By 02:31 PM [ Start or Stop Vital ] 02:31 PM CathStat 02:31 PM Pt arrived to labor delivery specialist 2 at 14:31 ejohnson 02:32 PM Bekah Corona (R) Position: Scrub Time in: 14:32 ejohnson 02:32 PM Marilu Turner RN Position: Survey Technologist Time in: 14:32 ejohnson 02:32 PM Juliette Pelletier RN Position: Monitor Time in: 14:32 ejohnson 02:32 PM Patient charges- Angio tray pack, Navilyst 3mm J, Pulse Oximetry and ACIST tubing and transducer ejohnson 02:32 PM Case Delayed No ejohnson 02:32 PM Hair removed from procedure site in holding area using clippers. Right wrist and left groin prepped with Chloraprep by Bekah Corona (R), safety strap applied then patient was draped. Skin intact. ejohnson 02:32 PM Physician arrived 14:32 ejohnson 02:32 PM ASA Class CLASS III- Severe systemic disease (i.e. prior AMI, diabetes with vascular complications, morbid obesity) ejohnson 02:32 PM Jc and mnoo completed ejohnson 02:32 PM Sign in performed according to hospital policy. ejohnson 02:32 PM Procedure start 14:32 ejohnson 02:32 PM Time: 14:32 Oxygen on at 2 L/min per nasal cannula by Marilu Turner RN ejohnson 02:33 PM Recorded ECG: HR=67 Condition=Condition 1 02:35 PM Vitals capture started with the following parameters, Patient=Adult, Interval=5 min, Initial Ejrfogpw=356 mmHg, Deflation Rate=5 mmHg, Cuff placed on Right Arm 02:36 PM Time: 14:36 Versed 2 mg Intravenous Given by Marilu Turner RN ejohnson 02:36 PM HR=66 bpm, YOZN=092/85 mmhg, SpO2=99.0 %, Resp=15 B/min, Comment=SR 02:37 PM Time: 14:37 Patient comfortable and pain free: Yes ejohnson 02:37 PM Time: 14:37LOC: 5 = Fully awake and oriented or at pre-proc level ejohnson 02:38 PM right groin excoriated and bleeding before procedure and before shaving. It was like this upon arrival to lab[facility] laboratory ejohnson 02:41 PM HR=66 bpm, AYQV=633/70 mmhg, SpO2=92.0 %, Resp=12 B/min, Comment=SR 02:45 PM HR=65 bpm, FXVI=389/74 mmhg, SpO2=96.0 %, Resp=21 B/min, Comment=SR 02:47 PM Time: 14:47 2 ml Lidocaine 2% to right radial Subcutaneous Given by Neo Zaidi DO ejohnson 02:51 PM HR=65 bpm, ACHI=686/76 mmhg, SpO2=96.0 %, Resp=19 B/min, Comment=SR 02:52 PM Time: 14:37LOC: 5 = Fully awake and oriented or at pre-proc level ejohnson 02:52 PM Time: 14:37 Patient comfortable and pain free: Yes ejohnson 02:53 PM Access obtained by percutaneous puncture. 5Fr 10cm Terumo Glidesheath sheath placed in right Radial artery. [id number] ejohnson 02:53 PM Time: 14:53 Patient given 200 mcg Nitroglycerin, and 2.5 mg Verapamil Intraarterial by Neo Zaidi DO ejohnson 02:53 PM 5Fr FR 4 catheter inserted over the wire DNC ejohnson 02:54 PM Catheter selectively placed in left ventricle ejohnson 02:54 PM Bolus angiogram of left Ventricle complete: hand injected 12 ml of contrast ejohnson 02:54 PM Recorded Pressure: LV, HR=69, Condition=Condition 1 (Left Ventricle) LV 105/28/31 02:55 PM Recorded Pressure: LV, Ao, HR=70, Condition=Condition 1 (Left Ventricle) LV 106/23/29, (Aorta) Ao 93/71/80 02:55 PM HR=66 bpm, AFIA=417/69 mmhg, SpO2=96.0 %, Resp=22 B/min, Comment=SR 02:55 PM Recorded Pressure: Ao, HR=66, Condition=Condition 1 (Aorta) Ao 95/65/78 02:56 PM RCA angiography performed in multiple views. ejohnson 02:57 PM Catheter removed ejohnson 02:57 PM Lesion found in Mid RCA. Pre Stenosis: 100 ejohnson 02:57 PM Right Coronary, Right Posterior Descending Arteries with Right Posterolateral and Acute Marginal branches with 100 % stenosis. ejohnson 02:58 PM 5Fr FL 4 catheter inserted over the wire DNC ejohnson 02:59 PM Bolus angiogram of right Femoral complete: hand injection of 12ml of contrast ejohnson 02:59 PM Recorded Pressure: Ao, HR=69, Condition=Condition 1 (Aorta) Ao 110/73/87 03:00 PM HR=69 bpm, VRXK=620/70 mmhg, SpO2=96.0 %, Resp=16 B/min, Comment=SR 03:01 PM Catheter removed ejohnson 03:03 PM Procedure completed at 15:03 ejohnson 03:03 PM Sign out completed: Radiation Dose 461.8 mGy Fluoro Time: 3.2 Isovue 370 - 200ml contrast 45 ml given by Neo Zaidi DO. Complications: NoneCardiac Rehab Consult needed: NoConfirmed administered medications: Yes ejohnson 03:03 PM Isovue 370 - 200ml,1 Bottle(s) used. ejohnson 03:03 PM 12 ml air in Vasc Band. ejohnson 03:03 PM Post ECG NSR ejohnson 03:03 PM Post Blood Pressure 121/70 ejohnson 03:04 PM 15:03 Post Pulses Rt Radial 1+ ejohnson 03:04 PM Information taught Cardiac Cath and Vasc Band ejohnson 03:04 PM Education needs Procedure ejohnson 03:04 PM Learning barriers :None ejohnson 03:04 PM Education Methods Verbal ejohnson 03:04 PM Education evaluation Able to repeat information ejohnson 03:04 PM Site status No bleeding/hematoma - Rt Wrist as reported by Bekah Corona RT (R) at 15:04 ejohnson 03:04 PM Plavix, Effient or Brilinta given No ejohnson 03:04 PM Delay to floor No ejohnson 03:04 PM Family placed in consult room. ejohnson 03:05 PM Coronary Dominance: right ejohnson 03:15 PM Patient out of room: 15:15 ejohnson Complications Complication None Hemodynamics Pressures Site Systolic/A Wave Diastolic/V Wave Mean LV 105 28 31 LV 106 23 29 AO 93 71 80 AO 95 65 78 AO 110 73 87 Post Procedure Information Blood Pressure: 121/70 mmHg Rhythm: NSR Post procedural instructions were given Closure Device Time Device Success/Fail 01/23/2017 3:03:00 PM Mechanical Compression Site Checks Time Location Status Staff Sheath In? Note 03:04 PM Rt Wrist No bleeding/hematoma Bekah Corona RT (R) Pulses Time Site Pre-Procedure Post-Procedure Note 01/23/2017 2:03:00 PM Bilateral DP & PT Doppler 3:03:00 PM Rt Radial 1+ Updated by Ivon Dudley RN on 01/30/2017 1:31:42 PM electronically signed on 01/30/2017 1:32:12 PM with status of Final
== END 2017-01-25 10:40 | disposition home or self-care (01) | DRG 286 ==
LOC: 2NNU 20:23 → EMEROO 20:23 → 2NNU 23:05
PROVIDERS: ADMIT Pediatrics; ATTEND Family Medicine

== ENCOUNTER 2017-01-27 00:23 | Inpatient (IN) ==
[2017-01-27] MEDS ORDERED: Amiodarone Premix 360 MG/200 ML BAG IVC ONE (00:43)
[2017-01-27] MEDS ORDERED: Amiodarone Premix 150 MG/100 ML BAG IVPB ONE (00:43)
[2017-01-27] MEDS ORDERED: Amiodarone Premix 360 MG/200 ML BAG IVC SCH ×2 (00:45→07:00)
[2017-01-27 00:55] LABS: Basophils % 0.2 %; Eosinophils # 0.5 K/mcL (0.0-0.6); Eosinophils % 5.5 %; Hematocrit 45.2 % (37.5-50.1); Hemoglobin 14.9 g/dL (12.9-16.9); Immature Granulocytes % 0.9 % (0-4); Immature Platelets 5.2 % (1.1-6.1); Lymphocytes # 1.8 K/mcL (0.6-4.6); Lymphocytes % 21.1 %; Mean Corpuscular Hemoglobin 29.8 pg (28.0-33.3); Mean Corpuscular Volume 90.4 fL (83.0-100.0); Mean Platelet Volume 10.3 fL (9.4-12.4); Monocytes # 1.1 K/mcL (0.0-1.3); Monocytes % 12.8 %; Neutrophils # 5.2 K/mcL (1.6-8.9); Platelet Count 190 K/mcL (140-400); Segmented Neutrophils % 59.5 %
--- NOTE | 2017-01-27 00:55 | Emergency Department Note ---
Disposition Clinical Impression: Ventricular tachycardia Disposition: Admitted As Inpatient Condition: Fair Arrhythmia/Palpitations HPI - General Chief Complaint: ED Arrhythmia/Palpitations Stated Complaint: rapid HR Time Seen by Provider: 01/27/17 00:30 Source: patient Mode of arrival: private vehicle Limitations: no limitations Nursing Notes Reviewed: Yes Vital Signs Reviewed: Yes - History of Present Illness HPI Narrative: 66-year-old male history of CAD, A. fib with AICD, V. tach requiring cardioversion presents to the ER due to palpitations and lightheadedness. Patient states roughly an hour prior to arrival he felt lightheaded. States he checked his heart rate at home and it was 165. He reports on the way in that he felt like his defibrillator went off. He states he did feel better at that time. Upon arrival he does feel better not complaining of chest pain or shortness of breath. Reports his dizziness has improved. No other complaints. Pt Subjective Complaint: palpitations Onset (ago): hour(s) Duration: constant Arrhythmia History: atrial fibrillation, AICD, other (Ventricular tachycardia) Associated symptoms: Reports: near-syncope. Denies: chest pain, shortness of breath, syncope - Related Data Home Medications Medication Instructions Recorded Confirmed Aclidinium [place] [Tudorza 1 puff IH BID #0 12/26/14 01/22/17 Pressair] Albuterol Sulfate [Albuterol 2 puff IH Q4HR PRN #0 12/26/14 01/22/17 Inhaler] Nitroglycerin [Nitrostat] 0.4 mg SL Q5M PRN 03/07/15 01/22/17 TraMADol [Ultram] 100 mg PO TID PRN 03/07/15 01/22/17 Aspirin 81 mg PO DAILY 11/05/16 01/22/17 Atorvastatin Calcium [Lipitor] 20 mg PO HS 11/05/16 01/22/17 Clopidogrel [Plavix] 75 mg PO DAILY 11/05/16 01/22/17 Ipratropium/Albuterol Neb [Duoneb] 3 ml IH Q6HR PRN 11/05/16 01/22/17 Metformin HCl [Metformin HCl ER] 500 mg PO 3XW 11/05/16 01/22/17 Spironolactone [Aldactone] 25 mg PO DAILY 11/05/16 01/22/17 Acetylcysteine 10% 2 ml IH Q8H PRN 01/22/17 01/22/17 Albuterol Neb [AccuNeb] 1.25 mg IH Q8H PRN 01/22/17 01/22/17 Omeprazole [PriLOSEC] 40 mg PO BID 01/22/17 01/22/17 Oxycodone HCl/Acetaminophen 1 each PO Q6H PRN 01/22/17 01/22/17 [Percocet 5-325 mg Tablet] Oxygen 3 l NS AD 01/22/17 01/22/17 Previous Rx's Medication Instructions Recorded Budesonide/Formoterol 160/4.5 2 puff IH BIDR #1 inhaler 12/29/14 [Symbicort] Amiodarone [Cordarone] 200 mg PO BID #60 tablet 01/25/17 Furosemide [Lasix] 40 mg PO BIDDIURETIC #60 tablet 01/25/17 Silodosin [Rapaflo] 8 mg PO DAILY #90 capsule 01/25/17 Allergies Allergy/AdvReac Type Severity Reaction Status Date / Time rofecoxib [From Vioxx] Allergy Difficulty Verified 01/27/17 00:25 Breathing All systems ED: reviewed and negative except as stated. Cardiovascular: Reports: palpitations. Denies: chest pain Respiratory: Denies: dyspnea Gastrointestinal: Denies: abdominal pain Neurological: Reports: other (Lightheadedness) Past Medical History - Past Medical History Attestation: Yes The following information was validated with the patient. Source: patient Medical history: Reports: atrial fibrillation, COPD, diabetes, hyperlipidemia, myocardial infarction, other Surgical history: Reports: herniorrhaphy, orthopedic, other, pacemaker/AICD, vascular surgery, other, AICD, pacemaker Psychiatric history: Reports: anxiety - Social History Smoking Status: Former smoker Smokeless Tobacco Status: No Alcohol use: Reports: none Drug use: Reports: none Physical Exam - General Limitations: no limitations General appearance: alert, in no apparent distress - Head Head exam: atraumatic, normocephalic - Eye Eye exam: Present: normal appearance - ENT ENT exam: normal exam - Neck Neck exam: Present: normal inspection, full ROM - Chest Chest inspection: Present: normal inspection, symmetric chest wall rise - Respiratory Respiratory exam: Present: normal lung sounds bilaterally - Cardiovascular Cardiovascular exam: Present: normal rhythm, tachycardia, normal heart sounds - Abdominal Exam Abdominal exam: Present: soft, Non-Tender. Absent: tenderness - Extremities Exam Extremities exam: Present: normal inspection, full ROM - Expanded Upper Extremity Exam Shoulder exam: Present: normal inspection, full ROM Arm exam: Present: normal inspection, full ROM Elbow exam: Present: normal inspection, full ROM Forearm/Wrist exam: Present: normal inspection, full ROM Hand exam: Present: normal inspection, full ROM - Expanded Lower Extremity Exam Hip/Pelvis exam: Present: normal inspection, full ROM Upper leg exam: Present: normal inspection, full ROM Knee exam: Present: normal inspection, full ROM Lower leg exam: Present: normal inspection, full ROM Ankle exam: Present: normal inspection, full ROM Foot/toe exam: Present: normal inspection, full ROM Neurovascular/Tendon exam: Absent: motor deficit, sensory deficit - Neurological Exam Neurological exam: Present: alert - Psychiatric Psychiatric exam: Present: normal affect, normal mood - Skin Skin exam: Present: warm, dry, intact Course Course Narrative: Patient seen and examined. Vital signs reviewed. EKG demonstrates V. tach with a rate of 159. I recently manage this patient several days ago with a very similar appearing EKG. He was bolused with amiodarone required cardioversion prior to admission to the hospital. We will attempt to start him on amiodarone again. His blood pressures currently stable. Crash cart in the room and patient is currently on pads. Labs ordered including troponin, TSH, coags. - Reevaluation(s) Reevaluation #1: Patient cardioverted during amiodarone bolus. We will recheck an EKG. He is currently hemodynamically stable. We will admit to the hospitalist service for V. tach. Vital Signs Temperature 98.0 F 01/27/17 00:25 Pulse Rate 104 01/27/17 00:25 Respiratory Rate 20 01/27/17 00:25 Blood Pressure 117/68 01/27/17 00:25 O2 Sat by Pulse Oximetry 96 01/27/17 00:25 Temperature 98.0 F 01/27/17 00:25 Pulse Rate 93 01/27/17 02:04 Respiratory Rate 18 01/27/17 02:04 Blood Pressure 129/82 01/27/17 02:04 O2 Sat by Pulse Oximetry 96 01/27/17 02:04 Oxygen Delivery Oxygen Delivery Nasal Cannula Arrhythmia/Palpitations - [facility] Narrative Medical decision making narrative: 66-year-old male presents to the ER due to palpitations and dizziness. Found to be in ventricular tachycardia here. He has a history of this requiring cardioversion in the past. He was recently admitted and discharged. Patient converted here after amiodarone bolus. We will place him on the drip. Repeat EKG is sinus. Admitted to the hospitalist service in hemodynamically stable condition. - Lab Data Lab results reviewed: Yes I reviewed the patient's lab results. Result diagrams: 01/27/17 00:45 01/27/17 00:45 Lab Results 01/27/17 01/27/17 01/27/17 Range/Units 00:45 00:45 00:45 WBC 8.7 (4.3-11.1) K/mcL RBC 5.00 (4.19-5.50) M/mcL Hgb 14.9 (12.9-16.9) g/dL Hct 45.2 (37.5-50.1) % MCV 90.4 (83.0-100.0) fL MCH 29.8 (28.0-33.3) pg MCHC 33.0 (31.6-35.5) g/dL RDW 14.0 (11.5-14.5) % Plt Count 190 (140-400) K/mcL MPV 10.3 (9.4-12.4) fL Immature Gran % 0.9 (0-4) % Seg Neutrophils % 59.5 % Lymphocytes % 21.1 % Monocytes % 12.8 % Eosinophils % 5.5 % Basophils % 0.2 % Neutrophils # 5.2 (1.6-8.9) K/mcL Lymphocytes # 1.8 (0.6-4.6) K/mcL Monocytes # 1.1 (0.0-1.3) K/mcL Eosinophils # 0.5 (0.0-0.6) K/mcL Basophils # 0.0 (0.0-0.2) K/mcL Immature Plt Fraction 5.2 (1.1-6.1) % PT 10.3 (9.4-12.1) Seconds INR 1.0 APTT 26.7 (26.0-36.0) Seconds Sodium 139 (136-145) mEq/L Potassium 4.0 (3.5-4.5) mEq/L Chloride 101 (98-109) mEq/L Carbon Dioxide 25 (19-29) mEq/L BUN 17 (8-26) mg/dL Creatinine 1.14 (0.72-1.25) mg/dL Est GFR ( Amer) > 60 (> 60) Est GFR (Non-Af Amer) > 60 (> 60) BUN/Creatinine Ratio 15 (6-26) Glucose 134 H (70-99) mg/dL Calculated Osmolality 292 (280-300) Calcium 9.7 (8.6-10.8) mg/dL Troponin I (0-0.03) ng/mL TSH 2.930 (0.350-4.840) mcIU/mL 01/27/17 Range/Units 00:45 WBC (4.3-11.1) K/mcL RBC (4.19-5.50) M/mcL Hgb (12.9-16.9) g/dL Hct (37.5-50.1) % MCV (83.0-100.0) fL MCH (28.0-33.3) pg MCHC (31.6-35.5) g/dL RDW (11.5-14.5) % Plt Count (140-400) K/mcL MPV (9.4-12.4) fL Immature Gran % (0-4) % Seg Neutrophils % % Lymphocytes % % Monocytes % % Eosinophils % % Basophils % % Neutrophils # (1.6-8.9) K/mcL Lymphocytes # (0.6-4.6) K/mcL Monocytes # (0.0-1.3) K/mcL Eosinophils # (0.0-0.6) K/mcL Basophils # (0.0-0.2) K/mcL Immature Plt Fraction (1.1-6.1) % PT (9.4-12.1) Seconds INR APTT (26.0-36.0) Seconds Sodium (136-145) mEq/L Potassium (3.5-4.5) mEq/L Chloride (98-109) mEq/L Carbon Dioxide (19-29) mEq/L BUN (8-26) mg/dL Creatinine (0.72-1.25) mg/dL Est GFR ( Amer) (> 60) Est GFR (Non-Af Amer) (> 60) BUN/Creatinine Ratio (6-26) Glucose (70-99) mg/dL Calculated Osmolality (280-300) Calcium (8.6-10.8) mg/dL Troponin I 0.03 (0-0.03) ng/mL TSH (0.350-4.840) mcIU/mL - Radiology Data Radiology results reviewed: Yes I reviewed the patient's radiology results. Chest X-Ray 01/27/17 00:33 IMPRESSION: Chest x-ray is unchanged from 4 days ago. The spiculated lesion/ mass in the right lung apex with adjacent pleural thickening is unchanged. D/ / Deion Dumont MD / Deion Dumont MD Interpreting Provider: Deion Dumont MD - EKG Data EKG attestation: Yes I reviewed and interpreted this EKG. EKG results narrative: EKG demonstrates ventricular tachycardia with a rate of 159. Right axis deviation. Abnormal R-wave progression. There are nonspecific ST-T wave changes in the inferior and lateral leads. No gross ST elevations. Similar comparison to previous EKG at which time he was in ventricular tachycardia as well. Critical Care Time Critical Care Time: Yes Total Critical Care Time: 45 Attestation: Critical care performed: Time is exclusive of separately billable procedures. Time includes: direct patient care, patient reassessment, coordination of patient care, interpretation of data (laboratory data, radiology data, and respiratory data), review of patient's medical records, medical consultation and documentation of patient care. Procedures included in critical care time: Procedures excluded from critical care time: S.B.A.R. - S.B.A.R. Situation: Demographics, MOA Background: Presenting Complaint, Relevant PMH, Meds, & Allergies Assessment: Vital Signs, Course and respsone to treatment, Exam Concerns, Patient/Family Expectation, Pertinant Lab Results Recommendation: Barrier(s) to disposition, Recommendation based on pending studies, treatments, or consults S.B.A.RIqra Report Given to: Dr. Aylin Coleman Repor Time: 02:15 (requests 20 PO K and check Mg) Attestation Statement - Attestation Attestation: I, Dany Bateman MD, personally evaluated this patient and discussed their management with the resident physician. I reviewed the resident's note and agree with the documented findings, medical decision making, and plan of care. 66-year-old male with history of ventricular tachycardia presents to the emergency department complaining of a rapid heartbeat which started about one hour prior to arrival. He states he felt weak and dizzy. No chest pain. No shortness of breath or diaphoresis. Patient was just admitted here a few days ago for the same problem and was just discharged yesterday. On his last visit he had to be electrically cardioverted. He was just recently started on amiodarone. His have a defibrillator. On examination patient is a well-developed obese elderly male in no acute distress. He is alert and oriented 3. There is no cyanosis or diaphoresis. Breath sounds are clear and equal bilaterally. Heart regular with a marked tachycardia. EKG shows ventricular tachycardia with a heart rate of 159. Labs reviewed and unremarkable. Chest x-ray unchanged from previous. Patient was placed on IV amiodarone and while receiving the IV bolus he converted to a sinus rhythm. The hospitalist, Dr. Viera, was consulted and accepted admission of the patient.
[2017-01-27 01:00] LABS: Prothrombin Time 10.3 Seconds (9.4-12.1)
[2017-01-27 01:02] LABS: Activated Partial Thrombo Time 26.7 Seconds (26.0-36.0)
[2017-01-27] MEDS ORDERED: *HR* Etomidate 20 MG/10 ML AMPUL IVP ONE (01:03)
[2017-01-27] MEDS ORDERED: 0.9 % Sodium Chloride 1,000 ML ONE (01:03)
[2017-01-27 01:07] LABS: BUN/Creatinine Ratio 15 (6-26); Blood Urea Nitrogen 17 mg/dL (8-26); Calcium 9.7 mg/dL (8.6-10.8); Carbon Dioxide 25 mEq/L (19-29); Chloride 101 mEq/L (98-109); Glucose 134 mg/dL (70-99); Osmolality,Calculated 292 (280-300); Sodium 139 mEq/L (136-145); eGFR For African Americans > 60 (> 60); eGFR For Non-African Americans > 60 (> 60)
[2017-01-27] MEDS ORDERED: Naloxone 0.4 MG/ML INJ IVP PRN (02:49)
[2017-01-27] MEDS ORDERED: Acetaminophen 325 MG TABLET PO PRN (02:49)
[2017-01-27] MEDS ORDERED: traMADol 50 MG TABLET PO PRN (02:57)
[2017-01-27] MEDS ORDERED: Nitroglycerin 0.4 MG TAB.SUBL SL PRN (02:57)
--- NOTE | 2017-01-27 03:02 | Internal Med History&Physical ---
Date of Encounter: 01/27/17 Time of Encounter: 03:01 Assessment and Plan (1) Ventricular tachycardia Current visit: Yes Status: Acute Current visit: Yes Status: Acute Unclear etiology, possibly related to acute systolic CHF Continue amiodarone drip Cardiology consult restart Lasix IV, strict I's and O's and daily weight Telemetry Omeprazole for GI prophylaxis and subcutaneous heparin for DVT prophylaxis. The patient will be admitted as inpatient, expected to stay more than 2 midnights. Full code. Time spent on this admission 40 minutes High risk due to V. tach (2) Elevated serum creatinine Current visit: Yes Status: Acute Acute renal failure possibly related to CHF Continue Lasix for now (3) Diabetes mellitus Current visit: No Status: Acute Insulin sliding scale Hold metformin (4) MANUEL on CPAP Current visit: No Status: Acute (5) History of COPD Current visit: No Status: Chronic No exacerbation (6) History of coronary artery disease Current visit: No Status: Chronic Continue aspirin, Plavix (7) BPH (benign prostatic hypertrophy) with urinary obstruction Current visit: No Status: Resolved Internal Medicine - H&P: HPI Chief complaint: Tachycardia and dizziness History of present illness: Mr. Apodaca is a 66 year old male with a past medical history of CHF possibly systolic status post AICD placement, A. fib not on anticoagulation currently on sotalol, diabetes type 2 not insulin-dependent, came to emergency room was just discharged from the hospital on 01/25/2017 when he came with a similar episode of ventricular tachycardia, during that hospitalization the patient's sotalol was stopped and he was started on amiodarone. The patient was discharged on 200 mg of amiodarone twice a day. During that hospitalization initially he had to be shocked/cardioverted with 200 J at the ER, this time, he converted to sinus rhythm without any intervention. Patient mentions that his heart rate went as high as 165 but did not experience any firing of his AICD. He felt dizzy before the episode, has been gaining weight and his legs have become more swollen. An amiodarone drip was started at the emergency room. Chest x-ray is unchanged from 4 days ago. The spiculated lesion/ mass in the right lung apex with adjacent pleural thickening is unchanged. Past Med Surg Social Fam HX - Past Medical History Medical history: atrial fibrillation, COPD, diabetes, hyperlipidemia, myocardial infarction, other Psychiatric history: anxiety - Past Surgical History Surgical History: herniorrhaphy, orthopedic, other, pacemaker/AICD, vascular surgery, other, AICD, pacemaker - Social History Smoking Status: Former smoker Smokeless Tobacco Status: No Alcohol use: none Drug use: none - Family History Father Living Status: Mother Living Status: Hx Family Endocrine Disorder: Yes (Diabetes) Brother Living Status: Still Living Hx Family Cardiac Disorders: Yes (Hypertension) Hx Family Endocrine Disorder: Yes (Diabetes) Sister Living Status: Still Living Hx Family Endocrine Disorder: Yes (Diabetes) - Additional Family History Additional family history: - Past Medical History. Medical history: atrial fibrillation (Not on anticoagulation currently on sotalol), COPD (Oxygen dependent using 2 L at home), diabetes (Not insulin-dependent), hyperlipidemia, myocardial infarction, other (BPH, chronically elevated troponins, CAD, cardioversion in the past,). Psychiatric history: anxiety. - Past Surgical History. Surgical History: herniorrhaphy, orthopedic, other (Shoulder arthroscopy), pacemaker/AICD, vascular surgery, other (Cardiac ablation), AICD, pacemaker. - Social History. Smoking Status: Former smoker. Packs per day: Quit 5 years ago. Smokeless Tobacco Status: No. Alcohol use: none. Drug use: none. - Family History. Father. Living Status: . Mother. Living Status: . Brother. Living Status: Still Living. Hx Family Cardiac Disorders: Yes (Hypertension). Hx Family Endocrine Disorder: Yes ( Diabetes). Sister. Living Status: Still Living. Hx Family Endocrine Disorder: Yes (Diabetes). Additional family history: Brother with lung cancer and mother with dementia Internal Medicine - H&P: Meds Aclidinium [place] [Tudorza Pressair] 1 puff IH BID #0 12/26/14 [History] Albuterol Sulfate [Albuterol Inhaler] 2 puff IH Q4HR PRN #0 12/26/14 [History] Budesonide/Formoterol 160/4.5 [Symbicort] 2 puff IH BIDR #1 inhaler 12/29/14 [Rx ] Nitroglycerin [Nitrostat] 0.4 mg SL Q5M PRN 03/07/15 [History] TraMADol [Ultram] 100 mg PO TID PRN 03/07/15 [History] Aspirin 81 mg PO DAILY 11/05/16 [History] Atorvastatin Calcium [Lipitor] 20 mg PO HS 11/05/16 [History] Clopidogrel [Plavix] 75 mg PO DAILY 11/05/16 [History] Ipratropium/Albuterol Neb [Duoneb] 3 ml IH Q6HR PRN 11/05/16 [History] Metformin HCl [Metformin HCl ER] 500 mg PO 3XW 11/05/16 [History] Spironolactone [Aldactone] 25 mg PO DAILY 11/05/16 [History] Acetylcysteine 10% 2 ml IH Q8H PRN 01/22/17 [History] Albuterol Neb [AccuNeb] 1.25 mg IH Q8H PRN 01/22/17 [History] Omeprazole [PriLOSEC] 40 mg PO BID 01/22/17 [History] Oxycodone HCl/Acetaminophen [Percocet 5-325 mg Tablet] 1 each PO Q6H PRN [History] Oxygen 3 l NS AD 01/22/17 [History] Amiodarone [Cordarone] 200 mg PO BID #60 tablet 01/25/17 [Rx] Furosemide [Lasix] 40 mg PO BIDDIURETIC #60 tablet 01/25/17 [Rx] Silodosin [Rapaflo] 8 mg PO DAILY #90 capsule 01/25/17 [Rx] 3 Allergy/AdvReac Type Severity Reaction Status Date / Time rofecoxib [From Vioxx] Allergy Difficulty Verified 01/27/17 00:25 Breathing All Systems PM: A 10-system review of systems was performed and is negative for pertinent findings except as documented above in the HPI. Review of systems: No chest pain, mild shortness of breath, other systems out of the 10 reviewed were negative - Constitutional Vitals: Temp Pulse Resp BP Pulse Ox 98.0 F 93 18 113/94 96 01/27/17 00:25 01/27/17 02:04 01/27/17 02:42 01/27/17 02:42 01/27/17 02:04 Exam: - Head Head exam: Present: atraumatic, normocephalic - Eye Eye exam: Present: PERRL, conjuntiva pink, sclera anicteric Pupils: Present: PERRL - Neck Neck exam general surgery: Present: supple, trachea midline. Absent: lymphadenopathy - Respiratory Respiratory exam: Present: decreased breath sounds, CTAB. Absent: accessory muscle use, rales, rhonchi, wheezes - Cardiovascular Cardiovascular exam: Present: RRR, +S1, +S2, tachycardia. Absent: diastolic murmur, gallop, rubs, systolic murmur - GI/Abdominal GI/Abdominal exam: Present: normal bowel sounds, soft, no peritoneal signs. Absent: distended, tenderness - Extremities Exam Extremities exam: Present: pedal edema (+2 pitting edema in both lower extremities), warm, radial pulses palpable and symmetrical. Absent: calf tenderness, cyanotic - Neurological Exam Neurological exam: Present: CN II-XII intact, oriented X3, no focal deficits. Absent: pronater drift, facial droop, speech deficit - Skin Skin exam: Present: dry, intact Internal Med - H&P Results - Labs CBC & Chem 7: 01/27/17 00:45 01/27/17 00:45
[2017-01-27] MEDS ORDERED: Furosemide 40 MG/4 ML VIAL IVP SCH (03:15)
[2017-01-27] MEDS: *HR* OxyCODONE/APAP 5/325 TABLET PO PRN ×2 (03:30→15:21)
[2017-01-27] MEDS: *HR* Heparin 5,000 UNIT/ML VIAL SQ SCH ×3 (05:33→22:16)
[2017-01-27] MEDS ORDERED: TUDORZA IH SCH (06:45)
[2017-01-27] MEDS ORDERED: Ipratropium/Albuterol Neb 3 ML IH PRN (08:11)
[2017-01-27] MEDS ORDERED: *HR* Labetalol 20 MG/4 ML SYRINGE IVP PRN (08:12)
[2017-01-27] MEDS: (Aclidinium Bromide [Tudorza Pressair] 1 PUFF) IH SCH ×2 (08:31→22:16)
[2017-01-27] MEDS: Budesonide/Formoterol 160/4.5 MDI IH SCH ×2 (08:31→22:29)
[2017-01-27] MEDS: Spironolactone 25 MG TABLET PO SCH (08:35)
[2017-01-27] MEDS: Furosemide 40 MG TABLET PO SCH ×2 (08:35→16:59)
[2017-01-27] MEDS: Aspirin 81 MG TAB.CHEW PO SCH (08:35)
[2017-01-27] MEDS ORDERED: NON-FORMULARY MEDICATION 1 EACH EACH AER SCH (09:00)
[2017-01-27] MEDS ORDERED: Budesonide/Formoterol 160/4.5 MDI IH SCH (10:00)
--- NOTE | 2017-01-27 10:18 | Event Note ---
<Regino Velasco - Last Filed: 01/27/17 11:19> Date of Encounter: 01/27/17 Time of Encounter: 08:30 S:Mr. Apodaca is a 66M PMH of known CAD s/p stents, HTN, HLD, HFpEF, AICD. Had a recent admission 01/22/17 for ventricular tachycardia with no AICD activation at home. During that admission patient cardioverted back to NSR, Sotalol discontinued, placed on amiodarone, EP consult changed setting of Medtronic to ATP/fire threshold of 160. Yesterday, pt presented to the ER with lightheadedness, tachycardia, with reports of possibly 1 defibrillator firing, pt was NSR in ER without new intervention. Admitted to f/u on new v-tac episode with likely activation of AICD. Pt feels better this morning, denies lightheadedness, syncope, shortness of breath, or chest pain. No palpitations. SocHx: Former smoker, quit 5 years ago, prior to quitting smoked 1/2ppd for 40 years; no Alcohol use. Denies illicit drug use. O: Head atraumatic. Neck full ROM. Chest: NSR, s1s2, Resp: CTAB A&P: Ventricular tachycardia Amiodarone drip Given Lasix and aldactone, home dosing (does not take BB, ADR: brochospasm) telemetry Cardiology consulted, pending Medtronic device interrogation report. BELLA: cont lasix DM: SSI, monitor Hx MANUEL: CPAP COPD: On 2L inpt; has 2L home o2 CAD: ASA/Plavix continue <Kelton Clinton - Last Filed: 01/27/17 15:18> Date of Encounter: 01/27/17 I examined this patient and my medical decision-making was reviewed with the Resident Physician. I agree with the documented findings, disposition and treatment plan as described except to the extent set forth below. I have seen and examined the patient. 66-year-old male with past medical history atrial fibrillation, COPD, diabetes, hyperlipidemia, coronary artery disease, history of V. tach status post AICD. Admitted for V. tach. Currently hemodynamically stable. Amiodarone drip has been stopped. Cardiology following patient. Advised to continue Amiodarone 200 mg BID. Toprol-XL 50 mg added today. Patient will need to follow up with [facility] for complex VT ablation. No other acute events or complaints.
--- NOTE | 2017-01-27 11:47 | Cardiology Consult Note ---
Date of Encounter: 01/27/17 Time of Encounter: 11:44 Assessment and Plan (1) Ventricular tachycardia Current Visit: Yes Status: Acute Patient has known hx of afib and VT. Recently hospitalized for >24 hour sustained VTach. Earlier this year patient had a failed ablation attempt at [facility]. He was on sotalol but his dosing had to be lowered because of QT prolongation. When his dosing was lowered his VTach started. On last admission patient's sotalol was DC'ed and patient was started on Amio 200 mg BID. Patient was compliant with Amio after last discharge, and <48 hours later patient returned with Sx: Tachycardia and palpitations. Interrogation of AICD, he had a VTach for 1 sec. Trop 0.03, BNP 101. CXR was unchanged from 4 days ago. EKG on admission showed sinus rhythm. - stopped amio drip, restarted home amio 200 mg BID - started metoprolol XL 50 mg, and to continue upon discharge - due to uncontrolled VTach, recommend patient should have ablation procedure at [facility] (2) CAD (coronary artery disease) Current Visit: No Status: Acute currently stable - continue ASA and plavix Qualifiers: Coronary Disease-Associated Artery/Lesion type: [place] artery [place] vs. transplanted heart: [place] heart Associated angina: with unspecified angina Qualified Code(s): I25.119 - Atherosclerotic heart disease of [place] coronary artery with unspecified angina pectoris (3) Obesity (BMI 30-39.9) Current Visit: No Status: Acute Patient had poor insight into cardiac diet. Discussed with patient healthy food choices. Recommended to patient to follow up with a shirring tender outpatient. Discussion w patient/family: The assessment and plan as outlined above was discussed with the patient and/or family members who expressed understanding and agreement. All questions were answered. Thank you for involving us in the care of your patient. Please call with any questions. History of Present Illness Consult date: 01/27/17 Requesting physician: Shahid Montero Consult reason: VTach Chief complaint: rapid heart rate History of present illness: Mr. Apodaca is a 66 year old male w/ hx of CAD, afib and VTach w/ dual chamber AICD placed in 2012, HTN, HLD, T2DM, prev smoker w/ 20 pack years, femoral bypass who is here for rapid heart rate and fluttering in his chest. Patient was recently hospitalized for the same symptoms, and discharged on 01/25/17. During that hospitalization patient's sotalol was discontinued due to QT prolongation and poor ventricular rate control, and patient was switched to Amiodarone. As well, his AICD device threshold was dropped from HR 176 to 160. After discharge on friday morning patient reports taking his amiodarone at 10 AM, then at 10 PM, and then yesterday at 10 AM and 10 PM. Patient reports that his heart rate has been over 160 since being discharged, and that on occasion he would feel fluttering in his chest. Patient was unsure if device shocked him or not, but he didn't think so. Patient denies CP, SOB, or diaphoresis. Patient states that symptoms started while sitting at rest. He self converted shortly after amiodarone was started in the ED. He does state that after he was discharged he went and had fried chicken, boiled/salted green beans, and cake. Upon questioning, he said he was fluid restricted but unsure of by how much. He states that after he was discharged that it was the least swollen he's been in awhile, but shortly after eating he became "extremely" swollen in his legs. Patient also reports not having pee'd after discharge on friday morning and readmission on friday night. He also had a previous attempted ablation at [facility] that failed. Past Med Surg Social Fam HX - Past Medical History Medical history: atrial fibrillation, COPD, diabetes, hyperlipidemia, myocardial infarction, other Psychiatric history: anxiety - Past Surgical History Surgical History: herniorrhaphy, orthopedic, other, pacemaker/AICD, vascular surgery, other, AICD, pacemaker - Social History Smoking Status: Former smoker Smokeless Tobacco Status: No Alcohol use: none Drug use: none - Family History Father Living Status: Mother Living Status: Hx Family Endocrine Disorder: Yes (Diabetes) Brother Living Status: Still Living Hx Family Cardiac Disorders: Yes (Hypertension) Hx Family Endocrine Disorder: Yes (Diabetes) Sister Living Status: Still Living Hx Family Endocrine Disorder: Yes (Diabetes) Medications and Allergies Aclidinium [place] [Tudorza Pressair] 1 puff IH BID #0 12/26/14 [History] Albuterol Sulfate [Albuterol Inhaler] 2 puff IH Q4HR PRN #0 12/26/14 [History] Budesonide/Formoterol 160/4.5 [Symbicort] 2 puff IH BIDR #1 inhaler 12/29/14 [Rx ] Nitroglycerin [Nitrostat] 0.4 mg SL Q5M PRN 03/07/15 [History] TraMADol [Ultram] 100 mg PO TID PRN 03/07/15 [History] Aspirin 81 mg PO DAILY 11/05/16 [History] Clopidogrel [Plavix] 75 mg PO DAILY 11/05/16 [History] Metformin HCl [Metformin HCl ER] 500 mg PO 3XW 11/05/16 [History] Spironolactone [Aldactone] 25 mg PO DAILY 11/05/16 [History] Albuterol Neb [AccuNeb] 1.25 mg IH Q8H PRN 01/22/17 [History] Omeprazole [PriLOSEC] 40 mg PO BID 01/22/17 [History] Oxycodone HCl/Acetaminophen [Percocet 5-325 mg Tablet] 1 each PO Q6H PRN [History] Oxygen 3 l NS AD 01/22/17 [History] Amiodarone [Cordarone] 200 mg PO BID #60 tablet 01/25/17 [Rx] Furosemide [Lasix] 40 mg PO BIDDIURETIC #60 tablet 01/25/17 [Rx] Atorvastatin [Lipitor] 40 mg PO HS 01/27/17 [History] Silodosin [Rapaflo] 8 mg PO DAILY 01/27/17 [History] 3 Allergy/AdvReac Type Severity Reaction Status Date / Time rofecoxib [From Vioxx] Allergy Difficulty Verified 01/27/17 00:25 Breathing All Systems Review: A 10-system review of systems was performed and is negative for pertinent findings except as documented above in the HPI. - Constitutional Constitutional: no anorexia, no headache(s), no malaise, no night sweats, no weakness, no weight gain - EENT Eyes: no blurred vision, no loss of vision Nose, mouth and throat: no bleeding gums, no dysphagia, no epistaxis, no mouth pain, no odynophagia, no sinus pain, no sore throat, no throat swelling - Cardiovascular Cardiovascular: as per HPI - Respiratory Respiratory: dyspnea (not more so than baseline), no cough - Gastrointestinal Gastrointestinal: no abdominal pain, no coffee ground emesis, no constipation, no diarrhea - Genitourinary Genitourinary: dysuria, no hematuria, no nocturia - Integumentary Integumentary: no erythema, no rash, no unusual bruising - Neurological Neurological: no abnormal speech, no dizziness, no focal weakness, no loss of vision, no memory loss, no numbness, no syncope, no tingling Physical Examination Vital Signs, Last 4 Hours Temp Pulse Resp BP Pulse Ox 01/27/17 11:24 71 01/27/17 10:38 126/82 01/27/17 09:44 81 01/27/17 09:27 97.6 F 81 14 158/100 95 01/27/17 09:15 73 182/102 01/27/17 08:45 70 158/100 01/27/17 08:33 16 94 01/27/17 08:00 79 162/96 01/27/17 07:55 69 General: Conversant, No Apparent Distress HEENT: Atraumatic, Normocephaly, Mucus Membranes Moist Neck: No JVD, Normal carotid pulses Cardiac: Reg Rate and Rhythm, No Murmur Lungs: Normal Breath Sounds, No Wheeze, Rales, Rhonchi Neuro: Alert and responsive, No focal deficits noted Abdomen: Soft, Non-Tender Skin: No rashes noted on visualized skin Musculoskeletal: No Chest Wall Tenderness Extremities: No Clubbing, No Cyanosis, Normal Pulses, Other (+2/4 pitting edema BLE) Results 01/27/17 00:45 01/27/17 00:45 Consult Discharge Plan - Plan [facility]: [facility]Primary Care Provider[facility] -
[2017-01-27] MEDS: *HR* Amiodarone 200 MG TABLET PO SCH ×2 (14:33→20:09)
[2017-01-27] MEDS: Metoprolol XL (24 HR) Succ 50 MG TAB.ER.24H PO SCH (15:21)
--- NOTE | 2017-01-27 16:49 | Electrocardiograph Report ---
[address] [address] Test Date: 2017-01-27 Pat Name: Ishan Apodaca Department: 103 Room: 2N12 Gender: M Panel Sewer: JOSE : 1950 Requested By: Gera Metcalf Order Number: [id number] Reading MD: Glory Martinez Measurements Intervals [place] Rate: 159 P: -40 AL: 124 QRS: 178 QRSD: 186 T: -7 QT: 348 QTc: 437 Interpretive Statements REGULAR WIDE COMPLEX TACHYCARDIA - CONSIDER VENTRICULAR TACHYCARDIA RIGHT BUNDLE BRANCH BLOCK Electronically Signed On 01-27-2017 16:47:52 EST by Glory Martinez
[2017-01-28 05:16] LABS: Hematocrit 41.6 % (37.5-50.1); Hemoglobin 13.5 g/dL (12.9-16.9); Mean Corpuscular HGB Conc 32.5 g/dL (31.6-35.5); Mean Corpuscular Hemoglobin 29.6 pg (28.0-33.3); Mean Corpuscular Volume 91.2 fL (83.0-100.0); Mean Platelet Volume 10.7 fL (9.4-12.4); Platelet Count 156 K/mcL (140-400); Red Blood Count 4.56 M/mcL (4.19-5.50); Red Cell Distribution Width 14.2 % (11.5-14.5)
[2017-01-28 05:35] LABS: BUN/Creatinine Ratio 16 (6-26); Blood Urea Nitrogen 17 mg/dL (8-26); Calcium 9.2 mg/dL (8.6-10.8); Carbon Dioxide 28 mEq/L (19-29); Chloride 101 mEq/L (98-109); Glucose 131 mg/dL (70-99); Osmolality,Calculated 287 (280-300); Potassium 4.6 mEq/L (3.5-4.5); Sodium 137 mEq/L (136-145); eGFR For African Americans > 60 (> 60); eGFR For Non-African Americans > 60 (> 60)
[2017-01-28] MEDS: *HR* Heparin 5,000 UNIT/ML VIAL SQ SCH (05:56)
[2017-01-28] MEDS: *HR* OxyCODONE/APAP 5/325 TABLET PO PRN (05:59)
[2017-01-28 07:30] VITALS: BP 115/58
[2017-01-28] MEDS: Aspirin 81 MG TAB.CHEW PO SCH (08:35)
[2017-01-28] MEDS: Furosemide 40 MG TABLET PO SCH (08:35)
[2017-01-28] MEDS: Metoprolol XL (24 HR) Succ 50 MG TAB.ER.24H PO SCH (08:36)
[2017-01-28] MEDS: Spironolactone 25 MG TABLET PO SCH (08:36)
[2017-01-28] MEDS: *HR* Amiodarone 200 MG TABLET PO SCH (08:36)
[2017-01-28] MEDS ORDERED: Metoprolol XL (24 HR) Succ 50 MG TAB.ER.24H PO SCH ×2 (09:00→14:23)
--- NOTE | 2017-01-28 09:28 | Discharge Summary ---
<Regino Velasco - Last Filed: 01/28/17 13:44> Date of Encounter: 01/28/17 Time of Encounter: 08:30 - Discharge Diagnosis (1) Ventricular tachycardia Priority: Primary Status: Acute (2) A-fib Priority: Secondary Status: Acute Qualifiers: Atrial fibrillation type: unspecified Qualified Code(s): I48.91 - Unspecified atrial fibrillation (3) Diabetes mellitus Priority: Secondary Status: Acute Qualifiers: Diabetes mellitus type: type 2 Diabetes mellitus complication status: without complication Diabetes mellitus senior care insulin use: without senior care use Qualified Code(s): E11.9 - Type 2 diabetes mellitus without complications (4) Elevated serum creatinine Priority: Secondary Status: Acute (5) MANUEL on CPAP Priority: Secondary Status: Acute (6) History of COPD Priority: Secondary Status: Chronic (7) History of coronary artery disease Priority: Secondary Status: Chronic - Discharge Medications Prescriptions: Metoprolol XL (24 HR) Succ [Toprol XL] 50 mg PO DAILY #30 tab.er.24h Polyethylene Glycol 3350 [MiraLAX] 17 gm PO DAILY PRN #5 powd.pack PRN Reason: Constipation Home Medications: Aclidinium [place] [Tudorza Pressair] 1 puff IH BID #0 12/26/14 [History] Albuterol Sulfate [Albuterol Inhaler] 2 puff IH Q4HR PRN #0 12/26/14 [History] Budesonide/Formoterol 160/4.5 [Symbicort] 2 puff IH BIDR #1 inhaler 12/29/14 [Rx ] Nitroglycerin [Nitrostat] 0.4 mg SL Q5M PRN 03/07/15 [History] TraMADol [Ultram] 100 mg PO TID PRN 03/07/15 [History] Aspirin 81 mg PO DAILY 11/05/16 [History] Clopidogrel [Plavix] 75 mg PO DAILY 11/05/16 [History] Metformin HCl [Metformin HCl ER] 500 mg PO 3XW 11/05/16 [History] Spironolactone [Aldactone] 25 mg PO DAILY 11/05/16 [History] Albuterol Neb [AccuNeb] 1.25 mg IH Q8H PRN 01/22/17 [History] Omeprazole [PriLOSEC] 40 mg PO BID 01/22/17 [History] Oxycodone HCl/Acetaminophen [Percocet 5-325 mg Tablet] 1 each PO Q6H PRN [History] Oxygen 3 l NS AD 01/22/17 [History] Amiodarone [Cordarone] 200 mg PO BID #60 tablet 01/25/17 [Rx] Furosemide [Lasix] 40 mg PO BIDDIURETIC #60 tablet 01/25/17 [Rx] Atorvastatin [Lipitor] 40 mg PO HS 01/27/17 [History] Silodosin [Rapaflo] 8 mg PO DAILY 01/27/17 [History] Metoprolol XL (24 HR) Succ [Toprol XL] 50 mg PO DAILY #30 tab.er.24h 01/28/17 [ Rx] Polyethylene Glycol 3350 [MiraLAX] 17 gm PO DAILY PRN #5 powd.pack 01/28/17 [Rx] Allergies/Adverse Reactions: 3 Allergy/AdvReac Type Severity Reaction Status Date / Time rofecoxib [From Vioxx] Allergy Difficulty Verified 01/27/17 00:25 Breathing Date of admission: 01/27/17 02:49 [facility] care physician: [facility] Consults: 01/27/17 08:10 Consult to Cardiology [CONS] Routine Comment: Consulting Provider: Cardiology Aicha Reason for Consult: v tach Call Completed: No - Patient Status Disposition: Home, Self-Care Condition: Fair Functional capacity at discharge: independent ambulation Overall status at discharge: patient is progressing back to baseline - Discharge Instructions Instructions: Metoprolol (By mouth), Polyethylene Glycol 3350 (By mouth), Chest Pain (DC), Meal Planning with Diabetes Exchanges (DC) Follow Up With: Dylon Kang MD [Partnered Physician] - 02/03/17 2:00 pm Additional Instructions: Cardiology and Primary team discussed plans for [facility] EP cardiology (ablation), pt has seen Dr. Hood in past; plans to call [facility] for new appointment. - Diet and Activity Activity: resume usual activities as tolerated Diet: advance to your usual diet Hospital course: Mr. Apodaca is a 66 year old male, past medical history of AFib and CHF (preserved EF since last echo) s/p AICD placement, presents with complaint of lightheadedness and palpitations with report of 1 possible defibrillation at home. Pt was admitted 1 week prior for v-tac, was cardioverted/AICD changed to fire at 160bpm, Sotalol home med discontinued and changed to amiodarone 200mg bid. During this hospital course, patient was evaluated by cardiology/medtronic interrogation demonstrated 1 sec run of v-tac. Patient discharged today, started on Toprol, to continue amiodarone, and to follow-up with [facility] for EP study and subsequent ablation. - Time Spent with Patient Total time spent providing and/or coordinating discharge services: - Constitutional Vitals: Temp Pulse Resp BP Pulse Ox 97.7 F 69 16 115/58 98 01/28/17 07:25 01/28/17 07:25 01/28/17 07:25 01/28/17 07:25 01/28/17 07:25 General appearance: Present: A&O X 3, no acute distress - Head Head exam: Present: atraumatic - Neck Neck exam general surgery: Present: full ROM - Respiratory Respiratory exam: Present: CTAB. Absent: accessory muscle use, respiratory distress - GI/Abdominal GI/Abdominal exam: Present: no peritoneal signs. Absent: tenderness - Neurological Exam Neurological exam: Absent: facial droop, speech deficit - Skin Skin exam: Present: warm. Absent: pallor <JoshuauYann - Last Filed: 01/28/17 20:08> Date of Encounter: 01/28/17 Procedures/tests Complete & Pending: Procedures Performed prior 72 hours Category Date Time Status ECG 12 lead ECG [ECG] Routine Y 01/27/17 01:09 Completed Date of admission: 01/27/17 02:49 Primary care physician: [facility] Consults: 01/27/17 08:10 Consult to Cardiology [CONS] Routine Comment: Consulting Provider: Cardiology Aicha Reason for Consult: v tach Call Completed: No Hospital course: Mr. Aopdaca is a 66 year old male - Time Spent with Patient Total time spent providing and/or coordinating discharge services: - Constitutional Vitals: Temp Pulse Resp BP Pulse Ox 97.7 F 69 16 115/58 98 01/28/17 07:25 01/28/17 07:25 01/28/17 07:25 01/28/17 07:25 01/28/17 07:25 - Attending Attestation I examined this patient and my medical decision-making was reviewed with the Resident Physician, Dr. Regino Velasco. I agree with the documented findings, disposition and treatment plan as described except to the extent set forth below. I have independently obtained history and examined the patient and my findings are summarized below: Patient currently denies chest pain. He is awake alert oriented in no acute distress. He was admitted to our service for recurrent ventricular tachycardia. No further events on telemetry. He was evaluated and cleared by cardiology for discharge. I advised him to follow-up with his fish culturist at [facility] as soon as possible to be evaluated for ablation.
[2017-01-28] MEDS: (Aclidinium Bromide [Tudorza Pressair] 1 PUFF) IH SCH (11:38)
[2017-01-28] MEDS: Budesonide/Formoterol 160/4.5 MDI IH SCH (11:38)
--- NOTE | 2017-01-29 06:01 | Electrocardiograph Report ---
[place] [address] Test Date: 2017-01-27 Pat Name: Ishan Apodaca Department: 103 Room: 2N12 Gender: M [employer]: [id number] : 1950 Requested By: Flex Porter Order Number: [id number] Reading MD: Amish Nava MD Measurements Intervals [place] Rate: 102 P: 50 WA: 177 QRS: 10 QRSD: 105 T: 128 QT: 359 QTc: 417 Interpretive Statements SINUS TACHYCARDIA LOW QRS VOLTAGE IN PRECORDIAL LEADS INFERIOR MYOCARDIAL INFARCTION, PROBABLY OLD Electronically Signed On 01-29-2017 6:00:12 EST by Amish Nava MD
== END 2017-01-28 12:39 | disposition home or self-care (01) | DRG 309 ==
LOC: 2NNU 00:23 → EMEROO 00:23 → 2NNU 02:44
PROVIDERS: ADMIT Pediatrics; ATTEND Family Medicine

== ENCOUNTER 2019-02-24 19:07 | Inpatient (IN) ==
[2019-02-24 20:00] LABS: Bilirubin,Urine Negative (Negative); Blood,Urine Negative (Negative); Clarity,Urine Clear (Clear); Color,Urine Yellow (Yellow); Glucose,Urine (UA) Normal (Normal); Ketones,Urine Negative (Negative); Leukocyte Esterase,Urine Negative (Negative); Nitrite,Urine Negative (Negative); PH,Urine 5.5 pH Units (5.0-8.0); Protein,Urine Trace mg/dL (Neg-Trace); Specific Gravity,Urine 1.025 (1.010-1.025); Urobilinogen,Urine Normal (Normal)
[2019-02-24 20:02] LABS: Basophils % 0.2 %; Eosinophils # 0.1 K/mcL (0.0-0.6); Eosinophils % 0.8 %; Hematocrit 42.2 % (37.5-50.1); Hemoglobin 14.3 g/dL (12.9-16.9); Immature Granulocytes % 0.9 % (0-4); Lymphocytes # 0.7 K/mcL (0.6-4.6); Lymphocytes % 5.9 %; Mean Corpuscular HGB Conc 33.9 g/dL (31.6-35.5); Mean Corpuscular Volume 91.5 fL (83.0-100.0); Mean Platelet Volume 9.9 fL (9.4-12.4); Monocytes % 8.7 %; Platelet Count 196 K/mcL (140-400); Red Blood Count 4.61 M/mcL (4.19-5.50); Red Cell Distribution Width 14.2 % (11.5-14.5); Segmented Neutrophils % 83.5 %
[2019-02-24 20:11] LABS: INR 1.2; Prothrombin Time 13.1 Seconds (9.4-12.1)
[2019-02-24 20:12] LABS: Amphetamine Screen,Urine Negative ng/mL (Cutoff=1000); Barbiturate Screen,Urine Negative ng/mL (Cutoff=200); Benzodiazepines Screen,Urine Positive ng/mL (Cutoff=200); Cannabinoid Screen,Urine Negative ng/mL (Cutoff = 50); Cocaine Screen,Urine Negative ng/mL (Cutoff= 300); Opiate Screen,Urine Positive ng/mL (Cutoff=300); Phencyclidine Screen,Urine Negative ng/mL (Cutoff=25)
[2019-02-24 20:14] LABS: Activated Partial Thrombo Time 29.6 Seconds (26.0-36.0)
[2019-02-24 20:25] LABS: Alanine Aminotransferase 14 Units/L (7-52); Albumin 3.9 g/dL (3.5-5.7); Albumin/Globulin Ratio 1.3 (1.1-2.2); Alkaline Phosphatase 94 Units/L (34-104); Aspartate Amino Transferase 19 Units/L (13-39); BUN/Creatinine Ratio 17 (6-26); Bilirubin,Direct 0.1 mg/dL (0.0-0.2); Bilirubin,Indirect 0.6 mg/dL (0.0-1.0); Bilirubin,Total 0.7 mg/dL (0.3-1.0); Blood Urea Nitrogen 19 mg/dL (8-23); Calcium 9.4 mg/dL (8.6-10.3); Carbon Dioxide 30 mEq/L (23-29); Chloride 100 mEq/L (98-107); Ethanol < 10 mg/dL (Less than 10); Globulin 2.9 g/dL (2.4-3.5); Glucose 168 mg/dL (70-105); Osmolality,Calculated 290 (280-300); Potassium 3.9 mEq/L (3.5-5.1); Sodium 137 mEq/L (136-145); Total Protein 6.8 g/dL (6.4-8.9); Troponin I 0.04 ng/mL (< 0.04); eGFR For African Americans > 60 (> 60); eGFR For Non-African Americans > 60 (> 60)
[2019-02-24] MEDS ORDERED: *HR* Metoprolol 5 MG/5 ML VIAL IVP ONE ×2 (20:32→21:24)
[2019-02-24] MEDS ORDERED: Furosemide 40 MG/4 ML VIAL IVP ONE (20:33)
[2019-02-24] MEDS ORDERED: *HR* LORazepam 2 MG/ML VIAL IVP ONE (21:04)
[2019-02-24] MEDS ORDERED: *HR* FentaNYL (PF) 100 MCG/2 ML VIAL IVP ONE (21:38)
[2019-02-24] MEDS ORDERED: Isovue-370 500 ML BOTTLE IVP ONE (22:33)
[2019-02-24] MEDS: *HR* LORazepam 2 MG/ML VIAL IVP ONE ×3 (23:47→23:58)
[2019-02-24] MEDS: *HR* FentaNYL (PF) 100 MCG/2 ML VIAL IVP ONE ×3 (23:47→23:58)
[2019-02-25] MEDS ORDERED: *HR* FentaNYL (PF) 100 MCG/2 ML VIAL IVP PRN (00:55)
[2019-02-25] MEDS ORDERED: Nitroglycerin 0.4 MG TAB.SUBL SL PRN (02:04)
[2019-02-25] MEDS ORDERED: GuaiFENesin Liq 200 MG/10 ML UDC PO PRN (02:04)
[2019-02-25] MEDS ORDERED: Furosemide 40 MG TABLET PO SCH (02:15)
[2019-02-25] MEDS ORDERED: Ipratropium Neb 0.5 MG NEBULIZER ONE (02:25)
[2019-02-25] MEDS ORDERED: Levalbuterol Neb 1.25 MG/3 ML ONE (02:25)
[2019-02-25] MEDS: Ipratropium Neb 0.5 MG NEBULIZER IH SCH ×5 (02:26→22:55)
[2019-02-25] MEDS: Levalbuterol Neb 1.25 MG/3 ML IH SCH ×5 (02:26→22:55)
[2019-02-25] MEDS ORDERED: Naloxone 0.4 MG/ML INJ IVP PRN (02:28)
[2019-02-25] MEDS ORDERED: Acetaminophen 325 MG TABLET PO PRN (02:28)
[2019-02-25] MEDS: *HR* OxyCODONE Immed Rel 5 MG TABLET PO PRN ×3 (04:56→18:54)
[2019-02-25 05:59] LABS: VBG HCO3 29 mEq/L (21-27); VBG PCO2 41 mmHg (41-51); VBG PH 7.45 pH Units (7.32-7.42); VBG PO2 77 mmHg (25-50)
[2019-02-25] MEDS ORDERED: *HR* Heparin 5,000 UNIT/ML VIAL SQ SCH (06:00)
[2019-02-25 06:22] LABS: Troponin I 0.19 ng/mL (< 0.04)
[2019-02-25] MEDS ORDERED: Metoprolol XL (24 HR) Succ 25 MG TAB.ER.24H PO SCH (09:00)
[2019-02-25] MEDS ORDERED: *HR* Metformin 500 MG TABLET PO SCH (09:00)
[2019-02-25] MEDS: Aspirin Enteric Coated 81 MG Tablet PO SCH (09:24)
[2019-02-25] MEDS: Spironolactone 25 MG TABLET PO SCH (09:25)
[2019-02-25] MEDS: Multivit/Ca/Min/Fe/FA 1 TAB TABLET PO SCH (09:25)
[2019-02-25] MEDS: Furosemide 40 MG TABLET PO SCH (09:25)
[2019-02-25] MEDS: *HR* Metformin 500 MG TABLET PO SCH (09:30)
[2019-02-25] MEDS ORDERED: *HR* Heparin 5,000 UNIT/ML VIAL IVP PRN ×2 (09:52)
[2019-02-25] MEDS ORDERED: (Aclidinium Bromide [Tudorza Pressair] 1 PUFF) IH SCH (10:00)
[2019-02-25] MEDS: Budesonide/Formoterol 160/4.5 1 PUFF INH IH SCH ×2 (10:23→22:54)
[2019-02-25 10:44] LABS: Estimated Average Glucose 154 mg/dl
[2019-02-25] MEDS ORDERED: Metoprolol XL (24 HR) Succ 25 MG TAB.ER.24H PO ONE (11:30)
[2019-02-25] MEDS: Heparin 25,000 UNIT/250 ML D5W 25,000 UNIT/250 ML IV.SOLN IVC SCH ×2 (12:12→22:43)
[2019-02-25 12:55] LABS: Hematocrit 39.2 % (37.5-50.1); Hemoglobin 13.5 g/dL (12.9-16.9); Mean Corpuscular HGB Conc 34.4 g/dL (31.6-35.5); Mean Corpuscular Hemoglobin 31.6 pg (28.0-33.3); Mean Corpuscular Volume 91.8 fL (83.0-100.0); Mean Platelet Volume 10.3 fL (9.4-12.4); Platelet Count 177 K/mcL (140-400); Red Blood Count 4.27 M/mcL (4.19-5.50); White Blood Count 10.7 K/mcL (4.3-11.1)
[2019-02-25 12:59] LABS: Heparin anti-factor XA UFH 0.01 IU/mL (0.30-0.70); INR 1.2; Prothrombin Time 13.6 Seconds (9.4-12.1)
[2019-02-25] MEDS ORDERED: Perflutren Lipid Microsphere 1.3 ML in 0.9 % Sodium Chloride 8.7 ML IVP ONE (13:34)
[2019-02-26 02:25] LABS: Basophils % 0.2 %; Eosinophils # 0.5 K/mcL (0.0-0.6); Hematocrit 37.6 % (37.5-50.1); Immature Granulocytes % 1.1 % (0-4); Lymphocytes # 1.2 K/mcL (0.6-4.6); Mean Corpuscular HGB Conc 31.6 g/dL (31.6-35.5); Mean Corpuscular Hemoglobin 30.8 pg (28.0-33.3); Mean Corpuscular Volume 97.4 fL (83.0-100.0); Mean Platelet Volume 10.6 fL (9.4-12.4); Monocytes # 1.2 K/mcL (0.0-1.3); Monocytes % 12.6 %; Neutrophils # 6.5 K/mcL (1.6-8.9); Platelet Count 159 K/mcL (140-400); Red Blood Count 3.86 M/mcL (4.19-5.50); Red Cell Distribution Width 14.3 % (11.5-14.5); Segmented Neutrophils % 68.1 %; White Blood Count 9.6 K/mcL (4.3-11.1)
[2019-02-26 02:30] LABS: Hemoglobin 11.9 g/dL (12.9-16.9)
[2019-02-26 02:48] LABS: Troponin I 0.07 ng/mL (< 0.04)
[2019-02-26 03:00] LABS: BUN/Creatinine Ratio 17 (6-26); Blood Urea Nitrogen 16 mg/dL (8-23); Calcium 8.5 mg/dL (8.6-10.3); Carbon Dioxide 26 mEq/L (23-29); Chloride 100 mEq/L (98-107); Glucose 202 mg/dL (70-105); Osmolality,Calculated 287 (280-300); Potassium 3.7 mEq/L (3.5-5.1); Sodium 135 mEq/L (136-145); eGFR For African Americans > 60 (> 60); eGFR For Non-African Americans > 60 (> 60)
[2019-02-26] MEDS: Levalbuterol Neb 1.25 MG/3 ML IH SCH ×4 (03:44→21:55)
[2019-02-26] MEDS: Ipratropium Neb 0.5 MG NEBULIZER IH SCH ×4 (03:44→21:55)
[2019-02-26] MEDS: *HR* Metformin 500 MG TABLET PO SCH (08:06)
[2019-02-26] MEDS: *HR* OxyCODONE Immed Rel 5 MG TABLET PO PRN ×2 (08:06→17:47)
[2019-02-26] MEDS: Furosemide 40 MG TABLET PO SCH (08:06)
[2019-02-26] MEDS: Aspirin Enteric Coated 81 MG Tablet PO SCH (08:07)
[2019-02-26] MEDS: Spironolactone 25 MG TABLET PO SCH (08:07)
[2019-02-26] MEDS: Multivit/Ca/Min/Fe/FA 1 TAB TABLET PO SCH (08:07)
[2019-02-26] MEDS ORDERED: Metoprolol XL (24 HR) Succ 50 MG TAB.ER.24H PO SCH (09:00)
[2019-02-26] MEDS: Budesonide/Formoterol 160/4.5 1 PUFF INH IH SCH ×2 (10:58→21:55)
[2019-02-26] MEDS: Heparin 25,000 UNIT/250 ML D5W 25,000 UNIT/250 ML IV.SOLN IVC SCH ×2 (11:26→22:24)
[2019-02-26 21:17] VITALS: BP 115/63
[2019-02-26] MEDS ORDERED: Aminoglycoside Consult 1 EACH MC ONE (22:46)
== END 2019-02-26 22:47 | disposition short-term general hospital (02) | DRG 309 ==
LOC: 2ANU 19:07 → EMEROOARM 19:07 → SUATTDRO 02-25 01:41 → 2ANU 02-25 02:45
PROVIDERS: ADMIT Internal Medicine; ATTEND Family Medicine

== ENCOUNTER 2020-01-03 19:08 | Observation (INO) ==
[2020-01-03 21:13] LABS: Basophils % 0.2 %; Eosinophils # 0.5 K/mcL (0.0-0.6); Eosinophils % 6.1 %; Hematocrit 50.7 % (37.5-50.1); Hemoglobin 16.1 g/dL (12.9-16.9); Immature Granulocytes % 0.6 % (0-4); Lymphocytes # 1.3 K/mcL (0.6-4.6); Mean Corpuscular HGB Conc 31.8 g/dL (31.6-35.5); Mean Corpuscular Volume 94.4 fL (83.0-100.0); Mean Platelet Volume 10.3 fL (9.4-12.4); Monocytes # 0.8 K/mcL (0.0-1.3); Monocytes % 10.2 %; Neutrophils # 5.4 K/mcL (1.6-8.9); Platelet Count 187 K/mcL (140-400); Red Blood Count 5.37 M/mcL (4.19-5.50); Red Cell Distribution Width 13.4 % (11.5-14.5); Segmented Neutrophils % 66.9 %; White Blood Count 8.1 K/mcL (4.3-11.1)
[2020-01-03 21:33] LABS: BUN/Creatinine Ratio 17 (6-26); Blood Urea Nitrogen 15 mg/dL (8-23); Calcium 9.9 mg/dL (8.6-10.3); Carbon Dioxide 33 mEq/L (23-29); Chloride 102 mEq/L (98-107); Glucose 130 mg/dL (70-105); Osmolality,Calculated 291 (280-300); Potassium 4.4 mEq/L (3.5-5.1); Sodium 139 mEq/L (136-145); eGFR For African Americans > 60 (> 60); eGFR For Non-African Americans > 60 (> 60)
[2020-01-04] MEDS ORDERED: Naloxone 0.4 MG/ML INJ IVP PRN (00:59)
[2020-01-04] MEDS ORDERED: Ondansetron 4 MG/2 ML VIAL IVP PRN (00:59)
[2020-01-04] MEDS ORDERED: Acetaminophen 325 MG TABLET PO PRN (00:59)
[2020-01-04] MEDS ORDERED: Clotrimazole 1% CRM 15 GM TUBE TP PRN (01:01)
[2020-01-04] MEDS ORDERED: *HR* LORazepam 0.5 MG TABLET PO PRN (01:01)
[2020-01-04] MEDS ORDERED: Albuterol 2.5 MG/3 ML NEBULIZER IH PRN (01:01)
[2020-01-04] MEDS ORDERED: (Diclofenac Sodium [Voltaren] 4 GM) TP PRN (01:01)
[2020-01-04] MEDS ORDERED: Nystatin POWDER 30 GM BOTTLE TP PRN (01:01)
[2020-01-04] MEDS ORDERED: *HR* Dextrose 50 % in Water (Vial) 50 ML VIAL IVP PRN (01:43)
[2020-01-04] MEDS ORDERED: Dextrose Gel 15 GM/37.5 ML TUBE PO PRN ×2 (01:43)
[2020-01-04] MEDS ORDERED: D5% in Water 1,000 ML IVC PRN (01:43)
[2020-01-04] MEDS: Insulin LISPRO 300 UNITS/3 ML VIAL SQ SCH ×4 (02:18→16:45)
[2020-01-04] MEDS: Budesonide/Formoterol 160/4.5 1 PUFF INH IH SCH ×2 (07:39→21:37)
[2020-01-04] MEDS: Metoprolol XL (24 HR) Succ 50 MG TAB.ER.24H PO SCH (08:31)
[2020-01-04] MEDS: *HR* OxyCODONE Immed Rel 5 MG TABLET PO SCH ×3 (08:31→20:30)
[2020-01-04 11:14] LABS: Basophils % 0.2 %; Eosinophils # 0.3 K/mcL (0.0-0.6); Hematocrit 47.4 % (37.5-50.1); Hemoglobin 15.4 g/dL (12.9-16.9); Immature Granulocytes % 0.5 % (0-4); Lymphocytes # 1.1 K/mcL (0.6-4.6); Mean Corpuscular HGB Conc 32.5 g/dL (31.6-35.5); Mean Corpuscular Hemoglobin 30.4 pg (28.0-33.3); Mean Corpuscular Volume 93.5 fL (83.0-100.0); Mean Platelet Volume 10.7 fL (9.4-12.4); Monocytes # 0.7 K/mcL (0.0-1.3); Monocytes % 7.4 %; Neutrophils # 7.3 K/mcL (1.6-8.9); Platelet Count 193 K/mcL (140-400); Red Blood Count 5.07 M/mcL (4.19-5.50); Red Cell Distribution Width 13.4 % (11.5-14.5); Segmented Neutrophils % 76.9 %; White Blood Count 9.5 K/mcL (4.3-11.1)
[2020-01-04 11:17] LABS: INR 1.2; Prothrombin Time 13.5 Seconds (9.4-12.1)
[2020-01-04] MEDS ORDERED: cefTRIAXone 1,000 MG in 0.9 % Sodium Chloride Mini Bag 100 ML IVPB ONE (11:34)
[2020-01-04 11:50] LABS: Bacteria,Urine Few per hpf (None-Few); Bilirubin,Urine Negative (Negative); Blood,Urine Moderate (Negative); Calcium Oxalate Crystals,Urine Present; Clarity,Urine Clear (Clear); Color,Urine Yellow (Yellow); Glucose,Urine (UA) Normal (Normal); Ketones,Urine Negative (Negative); Leukocyte Esterase,Urine Moderate (Negative); Mucus,Urine Few per lpf (None-Few); Nitrite,Urine Negative (Negative); PH,Urine 5.5 pH Units (5.0-8.0); Protein,Urine 70 mg/dL (Neg-Trace); Specific Gravity,Urine 1.028 (1.010-1.025); Squamous Epithelial Cell,Urine Few per hpf (None-Few); Urobilinogen,Urine Normal (Normal); WBC,Urine 50-100 per hpf (0-3)
[2020-01-04 12:37] LABS: BUN/Creatinine Ratio 16 (6-26); Blood Urea Nitrogen 13 mg/dL (8-23); Calcium 9.4 mg/dL (8.6-10.3); Carbon Dioxide 25 mEq/L (23-29); Chloride 102 mEq/L (98-107); Glucose 150 mg/dL (70-105); Magnesium 1.9 mg/dL (1.6-2.6); Osmolality,Calculated 287 (280-300); Phosphorous 3.1 mg/dL (2.7-4.5); Sodium 137 mEq/L (136-145); eGFR For African Americans > 60 (> 60); eGFR For Non-African Americans > 60 (> 60)
[2020-01-04] MEDS: 0.9 % Sodium Chloride 1,000 ML IVC SCH (13:18)
[2020-01-05] MEDS ORDERED: Nitroglycerin 0.4 MG TAB.SUBL SL PRN (05:12)
[2020-01-05 05:49] LABS: Basophils % 0.2 %; Eosinophils # 0.3 K/mcL (0.0-0.6); Eosinophils % 3.5 %; Hematocrit 44.6 % (37.5-50.1); Hemoglobin 14.3 g/dL (12.9-16.9); Immature Granulocytes % 0.6 % (0-4); Lymphocytes # 1.6 K/mcL (0.6-4.6); Lymphocytes % 18.5 %; Mean Corpuscular HGB Conc 32.1 g/dL (31.6-35.5); Mean Corpuscular Hemoglobin 29.7 pg (28.0-33.3); Mean Corpuscular Volume 92.5 fL (83.0-100.0); Mean Platelet Volume 10.3 fL (9.4-12.4); Monocytes % 11.6 %; Neutrophils # 5.8 K/mcL (1.6-8.9); Nucleated Red Blood Cells 0.2 /100 WBC (0); Platelet Count 178 K/mcL (140-400); Red Blood Count 4.82 M/mcL (4.19-5.50); Red Cell Distribution Width 13.4 % (11.5-14.5); Segmented Neutrophils % 65.6 %; White Blood Count 8.8 K/mcL (4.3-11.1)
[2020-01-05 06:13] LABS: BUN/Creatinine Ratio 20 (6-26); Blood Urea Nitrogen 13 mg/dL (8-23); Calcium 9.1 mg/dL (8.6-10.3); Carbon Dioxide 27 mEq/L (23-29); Chloride 105 mEq/L (98-107); Glucose 100 mg/dL (70-105); Osmolality,Calculated 284 (280-300); Potassium 3.8 mEq/L (3.5-5.1); Sodium 137 mEq/L (136-145); Troponin I < 0.03 ng/mL (< 0.04); eGFR For African Americans > 60 (> 60); eGFR For Non-African Americans > 60 (> 60)
[2020-01-05 06:50] VITALS: BP 120/74
[2020-01-05] MEDS: 0.9 % Sodium Chloride 1,000 ML IVC SCH (08:10)
[2020-01-05] MEDS: Metoprolol XL (24 HR) Succ 50 MG TAB.ER.24H PO SCH (08:13)
[2020-01-05] MEDS: *HR* OxyCODONE Immed Rel 5 MG TABLET PO SCH (08:14)
[2020-01-05] MEDS: Insulin LISPRO 300 UNITS/3 ML VIAL SQ SCH (08:14)
[2020-01-05] MEDS: Budesonide/Formoterol 160/4.5 1 PUFF INH IH SCH (09:17)
[2020-01-05] MEDS ORDERED: FLU Vac QV 20-21 (6Month+)/PF 0.5 ML SYRINGE IM ONE (11:01)
== END 2020-01-05 11:19 | disposition home health service (06) ==
LOC: CDU 19:08 → EMEROOARM 19:08 → SUATTDRO 22:58 → CDU 23:13 → 3BNU 01-04 00:06
PROVIDERS: ADMIT Student in an Organized Health Care Education/Training Program; ATTEND Internal Medicine